=== PATIENT | male | born 1965 | race Hispanic/Latino ===

== ENCOUNTER 2018-08-09 12:06 | Emergency (ER) | payer BC ==
[2018-08-09 12:43] LABS: Absolute Lymphocytes (CBC) 3.5 K/uL (0.7-4.9); Absolute Monocytes 0.5 K/uL (0.1-1.3); Absolute Neutrophil 3.2 K/uL (1.8-8.0); Basophils % 0.4 % (0-1.3); Eosinophils % 1.5 % (0-4.4); Hematocrit 48.7 % (39.6-49.0); Lymphocytes % 47.2 % (15.3-44.8); MPV 7.5 fL (7.6-11.3); RBC Red Blood Cell Count 5.02 M/uL (4.33-5.43)
[2018-08-09 12:46] LABS: Protime INR 1.03
--- NOTE | 2018-08-09 12:47 | RAD REPORT ---
EXAM DESCRIPTION: Josiah Single View08/09/2018 12:37 pm CLINICAL HISTORY: Chest pain COMPARISON: none FINDINGS: The lungs appear clear of acute infiltrate. The heart is normal size IMPRESSION: No acute abnormalities displayed
[2018-08-09 13:03] LABS: ALT/SGPT 101 U/L (12-78); AST/SGOT 58 U/L (15-37); Alkaline Phosphatase 106 U/L (45-117); BUN Blood Urea Nitrogen 13 mg/dL (7-18); Bicarbonate 23 mmol/L (21-32); Bilirubin Direct 0.1 mg/dL (0-0.2); Bilirubin Total 0.4 mg/dL (0.2-1.0); Glucose Level 170 mg/dL (74-106); NT PRO-BNP 19 pg/mL (<125); Sodium Level 137 mmol/L (136-145); Troponin (Emerg Dept Use Only) < 0.02 ng/mL (0.0-0.045)
[2018-08-09 13:11] LABS: Blood Morphology Comment NOT SEEN (NOT SEEN); Platelet Estimate ADEQ
--- NOTE | 2018-08-09 13:19 | EDPHYS ---
Physician Documentation [facility] Name: Travis Pichardo Age: 52 yrs Sex: Male : 1965 Arrival Date: 08/09/2018 Time: 12:08 Bed 7 Private MD: Fan Alanis S ED Physician Joe Arteaga HPI: 08/09 12:17 This 52 yrs old Male presents to ER via Ambulatory with complaints of Chest pm1 Pain. 12:17 The patient or guardian reports chest pain that is located primarily in the anterior pm1 aspect of right upper chest. 12:17 Onset: yesterday. The pain does not radiate. The chest pain is described as sharp. pm1 Modifying factors: The symptoms are alleviated by rest, the symptoms are aggravated by cough, deep breath, palpation of area, moving right arm. Severity of pain: in the emergency department the pain has improved. The patient has been recently seen by a physician: the patient's primary care provider, earlier today. Patient with chest pain onset yesterday that is reproduced with coughing, deep breathing, and moving right arm. Patient was throwing the baseball around on Tuesday with grandchild and attributes his pain to it. No shortness of breath, diaphoresis, headache, nausea, vomiting. Historical: - Allergies: 12:25 No Known Allergies; ph - Home Meds: 12:25 ATRIPLA 600-200-300 mg oral tab 1 tab once daily [Active]; Januvia 100 mg oral tab 1 ph tab once daily [Active]; Jardiance 10 mg oral tab 1 tab once daily [Active]; lisinopril 5 mg Oral tab 1 tab once daily [Active]; simvastatin 20 mg Oral tab 1 tab once daily [Active]; - PMHx: 12:25 Hypertension; Hyperlipidemia; HIV; Diabetes - NIDDM; ph - Immunization history:: Adult Immunizations up to date. - Social history:: Smoking status: Patient/guardian denies using tobacco. - Ebola Screening: : No symptoms or risks identified at this time. ROS: 12:17 Constitutional: Negative for fever, chills, and weight loss, Eyes: Negative for injury, pm1 pain, redness, and discharge, ENT: Negative for injury, pain, and discharge, Neck: Negative for injury, pain, and swelling, Respiratory: Negative for shortness of breath, cough, wheezing, and pleuritic chest pain, Abdomen/GI: Negative for abdominal pain, nausea, vomiting, diarrhea, and constipation, Back: Negative for injury and pain. 12:17 : Negative for injury, bleeding, discharge, and swelling, MS/Extremity: Negative for injury and deformity, Skin: Negative for injury, rash, and discoloration, Neuro: Negative for headache, weakness, numbness, tingling, and seizure. 12:17 Cardiovascular: Positive for chest pain, with cough, of the anterior aspect of right upper chest, Negative for edema, orthopnea, palpitations. Exam: 12:17 Constitutional: This is a well developed, well nourished patient who is awake, alert, pm1 and in no acute distress. Head/Face: Normocephalic, atraumatic. Eyes: Pupils equal round and reactive to light, extra-ocular motions intact. Lids and lashes normal. Conjunctiva and sclera are non-icteric and not injected. Cornea within normal limits. Periorbital areas with no swelling, redness, or edema. ENT: Nares patent. No nasal discharge, no septal abnormalities noted. Tympanic membranes are normal and external auditory canals are clear. Oropharynx with no redness, swelling, or masses, exudates, or evidence of obstruction, uvula midline. Mucous membranes moist. Neck: Trachea midline, no thyromegaly or masses palpated, and no cervical lymphadenopathy. Supple, full range of motion without nuchal rigidity, or vertebral point tenderness. No Meningismus. Cardiovascular: Regular rate and rhythm with a normal S1 and S2. No gallops, murmurs, or rubs. Normal PMI, no JVD. No pulse deficits. Respiratory: Lungs have equal breath sounds bilaterally, clear to auscultation and percussion. No rales, rhonchi or wheezes noted. No increased work of breathing, no retractions or nasal flaring. Abdomen/GI: Soft, non-tender, with normal bowel sounds. No distension or tympany. No guarding or rebound. No evidence of tenderness throughout. Back: No spinal tenderness. No costovertebral tenderness. Full range of motion. 12:17 Skin: Warm, dry with normal turgor. Normal color with no rashes, no lesions, and no evidence of cellulitis. MS/ Extremity: Pulses equal, no cyanosis. Neurovascular intact. Full, normal range of motion. 12:17 Chest/axilla: Inspection: normal, Palpation: crepitus, is not appreciated, tenderness, that is mild, of the anterior aspect of right upper chest, that totally reproduces the patient's complaints. 12:17 Neuro: Orientation: is normal, Motor: is normal, moves all fours. 12:36 NSR, 70 BPM, Normal ECG pm1 Vital Signs: 12:21 BP 130 / 95; Pulse 94; Resp 18; Temp 97.6; Pulse Ox 97% on R/A; Weight 90.72 kg; Height ph 5 ft. 10 in. (177.80 cm); Pain 3/10; 13:05 BP 127 / 83; Pulse 79; Resp 18; Pulse Ox 95% ; sv 12:21 Body Mass Index 28.70 (90.72 kg, 177.80 cm) ph MDM: 12:11 Patient medically screened. pm1 13:17 Data reviewed: vital signs. Data interpreted: Pulse oximetry: on room air is 97 %. pm1 Interpretation: normal. Counseling: I had a detailed discussion with the patient and/or guardian regarding: the historical points, exam findings, and any diagnostic results supporting the discharge/admit diagnosis, lab results, radiology results, the need for outpatient follow up, to return to the emergency department if symptoms worsen or persist or if there are any questions or concerns that arise at home. 08/09 12:16 Order name: Basic Metabolic Panel; Complete Time: 13:17 pm08/09 12:16 Order name: CBC with Diff; Complete Time: 13:17 pm08/09 12:16 Order name: LFT's; Complete Time: 13:17 pm08/09 12:16 Order name: Magnesium; Complete Time: 13:17 pm08/09 12:16 Order name: NT PRO-BNP; Complete Time: 13:17 pm08/09 12:16 Order name: PT-INR; Complete Time: 12:52 pm08/09 12:16 Order name: Troponin (emerg Dept Use Only); Complete Time: 13:17 pm08/09 12:16 Order name: XRAY Chest (1 view); Complete Time: 12:48 pm08/09 12:16 Order name: EKG; Complete Time: 12:17 pm1 08/09 12:16 Order name: Cardiac monitoring; Complete Time: 12:33 pm1 08/09 12:16 Order name: EKG - Nurse/Tech; Complete Time: 12:34 pm1 08/09 12:16 Order name: Labs collected and sent; Complete Time: 12:33 pm1 08/09 12:51 Order name: Manual Differential; Complete Time: 13:17 EDMS 08/09 12:16 Order name: O2 Per Protocol; Complete Time: 13:24 pm1 08/09 12:16 Order name: O2 Sat Monitoring; Complete Time: 13:24 pm1 Administered Medications: No medications were administered Disposition: 15:23 Co-signature as Attending Physician, Joe Arteaga MD I agree with the assessment and yanci plan of care. Disposition: 08/09/18 13:18 Discharged to Home. Impression: Chest pain, unspecified. - Condition is Stable. - Discharge Instructions: Nonspecific Chest Pain. - Medication Reconciliation Form, Thank You Letter, Antibiotic Education, Prescription Opioid Use form. - Follow up: Emergency Department; When: As needed; Reason: Worsening of condition. Follow up: Private Physician; When: 2 - 3 days; Reason: Recheck today's complaints, Continuance of care, Re-evaluation by your physician. - Problem is new. - Symptoms have improved. Signatures: Dispatcher [employer] Joe Palomo MD MD cha Hall, Patricia RN RN Rigoberto Vera, WALL ATTENDANT WALL ATTENDANT pm1 Corrections: (The following items were deleted from the chart) 13:34 13:18 08/09/2018 13:18 Discharged to Home. Impression: Chest pain, unspecified. ph Condition is Stable. Forms are Medication Reconciliation Form, Thank You Letter, Antibiotic Education, Prescription Opioid Use. Follow up: Emergency Department; When: As needed; Reason: Worsening of condition. Follow up: Private Physician; When: 2 - 3 days; Reason: Recheck today's complaints, Continuance of care, Re-evaluation by your physician. Problem is new. Symptoms have improved. pm1
--- NOTE | 2018-08-09 13:19 | ER ---
Nurse's Notes [facility] Name: Travis Pichardo Age: 52 yrs Sex: Male : 1965 Arrival Date: 08/09/2018 Time: 12:08 Bed 7 Private MD: Fan Alanis S Diagnosis: Chest pain, unspecified Presentation: 08/09 12:19 Presenting complaint: Patient states: R sided chest pain since yesterday, worse w/ ph coughing, deep breathing, or movement, pt states, " I was playing catch w/ my grandson over the weekend and I think it's from that but my PCP wanted me to come get checked out." Denies SOB, nausea, or palpations, EKG done at PCP normal. Transition of care: patient was received from another setting of care (ambulatory primary care physician practice). Onset of symptoms was August 09, 2018. Risk Assessment: Do you want to hurt yourself or someone else? Patient reports no desire to harm self or others. Initial Sepsis Screen: Does the patient meet any 2 criteria? No. Patient's initial sepsis screen is negative. Does the patient have a suspected source of infection? No. Patient's initial sepsis screen is negative. Care prior to arrival: None. 12:19 Method Of Arrival: Ambulatory ph 12:19 Acuity: LIYAH 3 ph Historical: - Allergies: 12:25 No Known Allergies; ph - Home Meds: 12:25 ATRIPLA 600-200-300 mg oral tab 1 tab once daily [Active]; Januvia 100 mg oral tab 1 ph tab once daily [Active]; Jardiance 10 mg oral tab 1 tab once daily [Active]; lisinopril 5 mg Oral tab 1 tab once daily [Active]; simvastatin 20 mg Oral tab 1 tab once daily [Active]; - PMHx: 12:25 Hypertension; Hyperlipidemia; HIV; Diabetes - NIDDM; ph - Immunization history:: Adult Immunizations up to date. - Social history:: Smoking status: Patient/guardian denies using tobacco. - Ebola Screening: : No symptoms or risks identified at this time. Screenin:26 Abuse screen: Denies threats or abuse. Denies injuries from another. Nutritional ph screening: No deficits noted. Tuberculosis screening: No symptoms or risk factors identified. Fall Risk None identified. Assessment: 12:27 General: Appears in no apparent distress. comfortable, well groomed, Behavior is calm, ph cooperative, appropriate for age, Denies fever, feeling ill. Pain: Complains of pain in anterior aspect of right upper chest Pain does not radiate. Pain currently is 3 out of 10 on a pain scale. Quality of pain is described as sharp, Pain began 1 day ago. Aggravated by repositioning. Neuro: Level of Consciousness is awake, alert, obeys commands, Oriented to person, place, time, situation. Cardiovascular: Reports chest pain, Denies diaphoresis, lightheadedness, nausea, palpitations, shortness of breath, Capillary refill < 3 seconds in bilateral fingers Patient's skin is warm and dry. Rhythm is sinus rhythm Chest pain quality is sharp, is located in right anterior chest wall is aggravated by breathing. Respiratory: Airway is patent Respiratory effort is even, unlabored, Respiratory pattern is regular, symmetrical, Breath sounds are clear bilaterally. GI: Patient currently denies abdominal pain, nausea, vomiting. Derm: Skin is intact, is healthy with good turgor, Skin is pink, warm \\T\\ dry. Musculoskeletal: Circulation, motion, and sensation intact. Range of motion: intact in all extremities. 13:33 Reassessment: Patient appears in no apparent distress at this time. Patient and/or ph family updated on plan of care and expected duration. Pain level reassessed. Patient is alert, oriented x 3, equal unlabored respirations, skin warm/dry/pink. Pt d/c home. Vital Signs: 12:21 BP 130 / 95; Pulse 94; Resp 18; Temp 97.6; Pulse Ox 97% on R/A; Weight 90.72 kg; Height ph 5 ft. 10 in. (177.80 cm); Pain 3/10; 13:05 BP 127 / 83; Pulse 79; Resp 18; Pulse Ox 95% ; sv 12:21 Body Mass Index 28.70 (90.72 kg, 177.80 cm) ph ED Course: 12:08 Patient arrived in ED. mr 12:09 Fan Alanis MD is Private Physician. mr 12:10 Daina Vila, PABLO is Primary Nurse. ph 12:11 Rigoberto Echevarria NP is PHCP. pm1 12:11 Joe Arteaga MD is Attending Physician. pm1 12:21 Triage completed. ph 12:26 Arm band placed on Patient placed in an exam room, on a stretcher, on telemetry monitor, ph on pulse oximetry. 12:27 Patient has correct armband on for positive identification. Bed in low position. Call ph light in reach. Side rails up X 1. environmental monitoring technician on. Pulse ox on. NIBP on. Door closed. Noise minimized. 12:31 Initial lab(s) drawn, by ED staff, sent to lab. Patient maintains SpO2 saturation ph greater than 95% on room air. 12:31 X-ray(s) taken. sv 12:35 X-ray completed. Portable x-ray completed in exam room. Patient tolerated procedure sw well. 12:36 XRAY Chest (1 view) In Process Unspecified. EDMS 13:33 No provider procedures requiring assistance completed. Patient did not have IV access ph during this emergency room visit. Administered Medications: No medications were administered Outcome: 13:18 Discharge ordered by MD. pm1 13:34 Discharged to home ambulatory. ph 13:34 Condition: good 13:34 Discharge instructions given to patient, Instructed on discharge instructions, follow up and referral plans. Demonstrated understanding of instructions, follow-up care. 13:34 Patient left the ED. ph Signatures: Dispatcher [employer] EDManjula Mckinney RN RN sv Rivera, Daina Collazo RN RN ph Warren, Shannon sw Marinas, Patrick, MELISSA LARD REFINER pm1
--- NOTE | 2018-08-09 15:29 | EKG ---
Test Date: 2018-08-09 Test Time: 12:28:53 Assistant Paralegal: MARIA M MEASUREMENT RESULTS: Intervals: Rate: 70 NJ: 152 QRSD: 86 QT: 380 QTc: 410 [place]foot: P: 64 NJ: 152 QRS: 85 T: 49 INTERPRETIVE STATEMENTS: Normal sinus rhythm Normal ECG Compared to ECG 10/27/2005 13:59:11 No significant changes Electronically Signed On 08-09-18 15:28:02 CDT by Med [facility]
== END 2018-08-09 13:34 | disposition home or self-care (01) ==
LOC: ER 12:06
DX: R07.9 Chest pain, unspecified (principal); I10 Essential (primary) hypertension; E78.5 Hyperlipidemia, unspecified; E11.9 Type 2 diabetes mellitus without complications; Z21 Asymptomatic human immunodeficiency virus [HIV] infection status
CPT/HCPCS: 36415; 71045; 80048; 80076; 83735; 83880; 84484; 85025; 85610; 93005; 99284

== ENCOUNTER 2022-04-10 09:20 | Emergency (ER) | payer BC ==
--- OUTSIDE RECORDS SUMMARY | 2022-04-10 09:27 | XMS REPORT | Continuity of Care Document ---
:1965 Author Organization [facility] t Address [address] [place] [address] Care Team Providers Name Role Phone Fan Peraza MD Primary Care Physician Brittany Willis MD Attending Clinician Fan Peraza MD Attending Clinician Malinda Matthews MA Attending Clinician Unavailable Only, Ang Db Test Attending Clinician Unavailable Charity Zuleta MD Attending Clinician CHARITY ZULETA Attending Clinician Unavailable Chidi Diallo RN Attending Clinician Unavailable Therapy, [facility] Covid Infusion Attending Clinician Unavailable Caesar Epstein MD Attending Clinician ACESAR EPSTEIN Attending Clinician Unavailable Shannon Jesus RN Attending Clinician Unavailable Doctor Unassigned, [place] Attending Clinician Unavailable TASNEEM ZHOU Attending Clinician Unavailable Ebrahikimberly SULLIVANPTasneem Attending Clinician UNKNOWN, ATTENDING Attending Clinician Unavailable Team, [facility] Attending Clinician Unavailabl e Lab, Ang - Db Attending Clinician Unavailable FAN PERAZA Attending Clinician Unavailable Jackie Gao RN Attending Clinician Unavailable NATTY THOMAS III Attending Clinician Unavailable Lab, [facility] Fam Pob I Attending Clinician Unavailable Shelley Hernandez Attending Clinician SHELLEY DE LA ROSA Attending Clinician Unavailable Marck Tilley DO Attending Clinician Kayleen Pratt Attending Clinician KAYLEEN TRAVIS Attending Clinician Unavailable Hilda Ritter Attending Clinician HILDA STEARNS Attending Clinician Unavailable Provider, [facility] Attending Clinician Unavailable Yady Turcios Attending Clinician Trish SHAH, Danay Benjamin Attending Clinician Unavailable YADY CHANG Attending Clinician Unavailable Pob1, Acute Care [facility] Attending Clinician Unavailable 2, [facility] Lab Attending Clinician Unavailable Payers Payer Name Policy Type Policy Number Effective Date Expiration Date S ource Problems Condition Condition Condition Status Onset Resolution Last Treating Co mments Source Name Details Category Date Date Treatment Clinician Date Fatty Fatty Disease Active Univers liver liver 12-13 ity of 00:00: [address] DONNELL DONNELL Disease Active Methodi (obstructi (obstructi 12-13 st ve sleep ve sleep 00:00: Hospit a apnea) apnea) 00 l Elevated Elevated Disease Active Unive rs total total 1-15 ity of protein protein 00:00: [address] Cervical Cervical Disease Active [facility] di pain pain 2-09 st (neck) (neck) 00:00: Hospita 00 l Type 2 Type 2 Disease Active 2016-04 Univers diabetes diabetes 0-17 ity of mellitus mellitus 00:00: [place] with with 00 Medical microalbum microalbum Br anch inuria, inuria, without without long-term long-term current current use of use of insulin insulin Hyperlipid Hyperlipid Disease Active 2016-04 M ethodi emia emia 0-17 st 00:00: Hospita 00 l Fatty Fatty Disease Active [facility] liver liver 808 st 00:00: Hospita 00 l Type 2 Type 2 Disease Active [facility] diabetes diabetes 4-21 st mellitus mellitus 00:00: Hospit a 00 l HIV (human HIV (human Disease Active U nivers immunodefi immunodefi 4-12 it y of ciency ciency 00:00: [place] virus virus 00 Medical infection) infection) Br anch Elevated Elevated Disease Active [facility] di liver liver 4-12 st enzymes enzymes 00:00: Hospita 00 l 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 09-22 ciency ciency 00:00: Hospita virus virus 00 l (HIV) (HIV) disease disease Abnormal Abnormal Disease Active [facility] di LFTs LFTs 09-22 00:00: Hospita 00 l Dyslipidem Dyslipidem Disease Active M ethodi ia ia 09-22 00:00: Hospita 00 l Essential Essential Disease Active 2014-04 Met hodi hypertensi hypertensi on on 00:00: Hospita 00 l Allergies, Adverse Reactions, Alerts Allergy Allergy Status Severity Reaction(s) Onset Inactive Treating Comm ents Source Name Type Date Date Clinician No Known Propensi Active Method i Drug ty to 09-22 Allergie adverse 00:00: Hospita s reaction 00 l s to drug NO KNOWN Drug Active [facility] ALLERGIE Class ity of S [facility] Family History Family Member Diagnosis Comments Start Date Stop Date Source Natural brother Diabetes [facility] Natural father Diabetes [facility] Natural father Heart attack [facility] Social History Social Habit Start Date Stop Date Quantity Comments Source History SDOH University o f Alcohol Frequency [place] [facility] History SDOH University o f Alcohol Std [place] Medical Drinks Branch History SDDC University o f Alcohol Binge [place] Medic al Branch Alcohol intake 2022-01-19 2022-01-19 Current Protestant 00:00:00 00:00:00 non-drinker of Hospital alcohol (finding) Exposure to 2021-10-02 2021-10-12 Not sure [facility] SARS-CoV-2 00:00:00 10:50:00 [facility] (event) Branch Tobacco use and 2017-05-27 2017-05-27 Smokeless tobacco [facility] exposure 00:00:00 00:00:00 non-user Hospital Alcohol Comment 2015-03-26 2015-03-26 socially Universit y of 00:00:00 00:00:00 [facility] Sex [birth year] At [birth year] [facility] 00:00:00 00:00:00 Hospital Smoking Status Start Date Stop Date Source Never smoked tobacco [facility] Medications Ordered Filled Start Stop Current Ordering Indication Dosage Frequency Signature Comments Components Source Medication Medication Date Date Medication? Clinician (SIG) Name Name efavirenz-e 2021-043- Yes TAKE 1 Met hodi mtricitabin 1-11 11-[address] e-tenofovir 00:00: 05:59 MOUTH Hosp filipe DF 00 :00 EVERY DAY l (ATRIPLA) IN THE 600-200-300 EVENING mg per tablet JANUVIA 100 2021-0 Yes [id number] TAKE 1 Univers mg tablet 9-23 TABLET BY ity o f 00:00: MOUTH [place] 00 EVERY DAY Medical Branch JARDIANCE 2021-0 Yes [id number] TAKE 1 Un radha 25 mg Tab 8-26 TABLET BY ity o f 00:00: MOUTH [place] 00 EVERY DAY Medical Branch JARDIANCE 0 Yes [id number] TAKE 1 Un radha 25 mg Tab 8-26 TABLET BY ity o f 00:00: MOUTH [place] 00 EVERY DAY Medical Branch LISINOPRIL 2021-0 Yes [id number] TAKE 1 U nivers 5 mg tablet 8-08 TABLET BY ity of 00:00: MOUTH [place] 00 EVERY DAY Medical Branch SIMVASTATIN 2021-0 Yes [id number] TAKE 1 Univers 20 mg 8-08 TABLET BY ity of tablet 00:00: MOUTH [place] 00 EVERY DAY Medical AT NIGHT Branch LISINOPRIL 0 Yes [id number] TAKE 1 U nivers 5 mg tablet 8-08 TABLET BY ity of 00:00: MOUTH [place] 00 EVERY DAY Medical Branch SIMVASTATIN 2021-0 Yes [id number] TAKE 1 Univers 20 mg 8-08 TABLET BY ity of tablet 00:00: MOUTH [place] 00 EVERY DAY Medical AT NIGHT Branch LISINOPRIL 2021-0 Yes [id number] TAKE 1 U nivers 5 mg tablet 8-08 TABLET BY ity of 00:00: MOUTH [place] 00 EVERY DAY Medical Branch SIMVASTATIN 2021-0 Yes [id number] TAKE 1 Univers 20 mg 8-08 TABLET BY ity of tablet 00:00: MOUTH [place] 00 EVERY DAY Medical AT NIGHT Branch Jardiance 2021-0 Yes 25mg QD Take 25 mg Me thodi 25 mg 5-[address] tablet 00:00: daily. Hospita 00 l amoxicillin 0 Yes 500mg Q.[id number] Take 500 [facility] (AMOXIL) 4-[id number] 500 MG 00:00: 3D mouth 3 Hospita capsule 00 (three) l times a day. empaglifloz 2022-0 Yes [id number] 25mg Take 1 Univers in 2-07 tablet by ity of (JARDIANCE) 00:00: mouth [place] 25 mg Tab 00 daily. Medical Branch empaglifloz 2-0 Yes [id number] 25mg Take 1 Univers in 2-07 tablet by ity of (JARDIANCE) 00:00: mouth [place] 25 mg Tab 00 daily. Medical Branch empaglifloz 2-0 Yes [id number] 25mg Take 1 Univers in 2-07 tablet by ity of (JARDIANCE) 00:00: mouth [place] 25 mg Tab 00 daily. Medical Branch empaglifloz 2-0 Yes [id number] 25mg Take 1 Univers in 2-07 tablet by ity of (JARDIANCE) 00:00: mouth [place] 25 mg Tab 00 daily. Medical Branch empaglifloz 2-0 Yes [id number] 25mg Take 1 Univers in 2-07 tablet by ity of (JARDIANCE) 00:00: mouth [place] 25 mg Tab 00 daily. Medical Branch empaglifloz 2-0 Yes [id number] 25mg Take 1 Univers in 2-07 tablet by ity of (JARDIANCE) 00:00: mouth [place] 25 mg Tab 00 daily. Medical Branch empaglifloz 2-0 Yes [id number] 25mg Take 1 Univers in 2-07 tablet by ity of (JARDIANCE) 00:00: mouth [place] 25 mg Tab 00 daily. Medical Branch empaglifloz 2-0 Yes [id number] 25mg Take 1 Univers in 2-07 tablet by ity of (JARDIANCE) 00:00: mouth [place] 25 mg Tab 00 daily. Medical Branch empaglifloz 2-0 Yes [id number] 25mg Take 1 Univers in 2-07 tablet by ity of (JARDIANCE) 00:00: mouth [place] 25 mg Tab 00 daily. Medical Branch empaglifloz 2-0 Yes [id number] 25mg Take 1 Univers in 2-07 tablet by ity of (JARDIANCE) 00:00: mouth [place] 25 mg Tab 00 daily. Medical Branch efavirenz-e 2021-0 2022- No TAKE 1 Met hodi mtricitabin 2-10 26- TABLET BY st e-tenofovir 00:00: 00:00 MOUTH Hosp filipe DF 00 :00 EVERY DAY l (ATRIPLA) IN THE 600-200-300 EVENING mg per tablet empaglifloz 2021-2021- No [id number] 25mg Take 1 Univers in 2-07 08-26 tablet by ity of (JARDIANCE) 00:00: 00:00 [place] 25 mg Tab 00 :00 daily. Medical Branch simvastatin 2021-0 Yes [id number] TAKE 1 Univers 20 mg 1-12 TABLET BY ity of tablet 00:00: MOUTH [place] 00 EVERY DAY Medical AT NIGHT Branch lisinopriL 0 Yes [id number] 5mg Take 1 U nivers 5 mg tablet 1-12 tablet by ity of 00:00: mouth [place] 00 daily. Medical Branch SITagliptin Yes [id number] 100mg Take 1 Univers (JANUVIA) 1-12 tablet by ity o f 100 mg 00:00: mouth [place] tablet 00 daily. Medical Branch simvastatin 2021-0 Yes [id number] TAKE 1 Univers 20 mg 1-12 TABLET BY ity of tablet 00:00: MOUTH [place] 00 EVERY DAY Medical AT NIGHT Branch lisinopriL 0 Yes [id number] 5mg Take 1 U nivers 5 mg tablet 1-12 tablet by ity of 00:00: mouth [place] 00 daily. Medical Branch SITagliptin Yes [id number] 100mg Take 1 Univers (JANUVIA) 1-12 tablet by ity o f 100 mg 00:00: mouth [place] tablet 00 daily. Medical Branch simvastatin 2021-0 Yes [id number] TAKE 1 Univers 20 mg 1-12 TABLET BY ity of tablet 00:00: MOUTH [place] 00 EVERY DAY Medical AT NIGHT Branch lisinopriL 0 Yes [id number] 5mg Take 1 U nivers 5 mg tablet 1-12 tablet by ity of 00:00: mouth [place] 00 daily. Medical Branch SITagliptin Yes [id number] 100mg Take 1 Univers (JANUVIA) 1-12 tablet by ity o f 100 mg 00:00: mouth [place] tablet 00 daily. Medical Branch simvastatin 2021-0 Yes [id number] TAKE 1 Univers 20 mg 1-12 TABLET BY ity of tablet 00:00: MOUTH [place] 00 EVERY DAY Medical AT NIGHT Branch lisinopriL 0 Yes [id number] 5mg Take 1 U nivers 5 mg tablet 1-12 tablet by ity of 00:00: mouth [place] 00 daily. Medical Branch SITagliptin 0 Yes [id number] 100mg Take 1 Univers (JANUVIA) 1-12 tablet by ity o f 100 mg 00:00: mouth [place] tablet 00 daily. Medical Branch simvastatin 2021-0 Yes [id number] TAKE 1 Univers 20 mg 1-12 TABLET BY ity of tablet 00:00: MOUTH [place] 00 EVERY DAY Medical AT NIGHT Branch lisinopriL 2021-0 Yes [id number] 5mg Take 1 U nivers 5 mg tablet 1-12 tablet by ity of 00:00: mouth [place] 00 daily. Medical Branch SITagliptin 0 Yes [id number] 100mg Take 1 Univers (JANUVIA) 1-12 tablet by ity o f 100 mg 00:00: mouth [place] tablet 00 daily. Medical Branch simvastatin 2021-0 Yes [id number] TAKE 1 Univers 20 mg 1-12 TABLET BY ity of tablet 00:00: MOUTH [place] 00 EVERY DAY Medical AT NIGHT Branch lisinopriL 0 Yes [id number] 5mg Take 1 U nivers 5 mg tablet 1-12 tablet by ity of 00:00: mouth [place] 00 daily. Medical Branch SITagliptin 0 Yes [id number] 100mg Take 1 Univers (JANUVIA) 1-12 tablet by ity o f 100 mg 00:00: mouth [place] tablet 00 daily. Medical Branch simvastatin 2021-0 Yes [id number] TAKE 1 Univers 20 mg 1-12 TABLET BY ity of tablet 00:00: MOUTH [place] 00 EVERY DAY Medical AT NIGHT Branch lisinopriL 2021-0 Yes [id number] 5mg Take 1 U nivers 5 mg tablet 1-12 tablet by ity of 00:00: mouth [place] 00 daily. Medical Branch SITagliptin 0 Yes [id number] 100mg Take 1 Univers (JANUVIA) 1-12 tablet by ity o f 100 mg 00:00: mouth [place] tablet 00 daily. Medical Branch simvastatin 2021-0 Yes [id number] TAKE 1 Univers 20 mg 1-12 TABLET BY ity of tablet 00:00: MOUTH [place] 00 EVERY DAY Medical AT NIGHT Branch lisinopriL 2021-0 Yes [id number] 5mg Take 1 U nivers 5 mg tablet 1-12 tablet by ity of 00:00: mouth [place] 00 daily. Medical Branch SITagliptin Yes [id number] 100mg Take 1 Univers (JANUVIA) 1-12 tablet by ity o f 100 mg 00:00: mouth [place] tablet 00 daily. Medical Branch simvastatin Yes [id number] TAKE 1 Univers 20 mg 1-12 TABLET BY ity of tablet 00:00: MOUTH [place] 00 EVERY DAY Medical AT NIGHT Branch lisinopriL Yes [id number] 5mg Take 1 U nivers 5 mg tablet 1-12 tablet by ity of 00:00: mouth [place] 00 daily. Medical Branch SITagliptin Yes [id number] 100mg Take 1 Univers (JANUVIA) 1-12 tablet by ity o f 100 mg 00:00: mouth [place] tablet 00 daily. Medical Branch SITagliptin Yes [id number] 100mg Take 1 Univers (JANUVIA) 1-12 tablet by ity o f 100 mg 00:00: mouth [place] tablet 00 daily. Medical Branch SITagliptin Yes [id number] 100mg Take 1 Univers (JANUVIA) 1-12 tablet by ity o f 100 mg 00:00: mouth [place] tablet 00 daily. Medical Branch SITagliptin 2021- No [id number] 100mg Take 1 Univers (JANUVIA) 1-12 - tablet by ity of 100 mg 00:00: 00:00 mouth [place] tablet 00 :00 daily. Medical Branch simvastatin 2021- No [id number] TAKE 1 Univers 20 mg 04-29-08 TABLET BY ity of tablet 00:00: 00:00 MOUTH [place] 00 :00 EVERY DAY Medical AT NIGHT Branch lisinopriL 2021- No [id number] 5mg Take 1 Univers 5 mg tablet 04-29- tablet by it y of 00:00: 00:00 mouth [place] 00 :00 daily. Medical Branch efavirenz-e 2021- No TAKE 1 Met hodi mtricitabin 5-10 05-[address] e-tenofovir 00:00: 00:00 MOUTH Hosp filipe DF 00 :00 EVERY DAY l (ATRIPLA) IN THE 600-200-300 EVENING mg per tablet naproxen 2019-04- No [id number] 500mg Take 1 Un radha 500 mg - 05-25 tablet by ity of tablet 00:00: 00:00 mouth 2 [place] 00 :00 (two) Medical times Branch daily with meals. methylPREDN 2021- No [id number] Take by [facility] 12-24 mouth ity of (MEDROL, 00:00: 00:00 [place] 4 mg 00 :00 CTIONS. Medica l tablets follow Branch package directions triamcinolo 2021- No [id number] 2{spray Use 2 [facility] ne 12-24 } Sprays in ity of (NASACORT) 00:00: 00:00 each [place] 55 mcg 00 :00 nostril Medical nasal daily. Branch inhaler lisinopriL Yes 5mg Take 5 mg Me thodi (PRINIVIL) 3-[address] 5 mg tablet 00:00: Hospit a 00 l empaglifloz 2021- No 1{tbl} Take 1 M ethodi in 10 mg -05 05-[address] tablet 00:00: 00:00 mouth. Hospita tablet 00 :00 l simvastatin 2021- No TAKE 1 Met hodi (ZOCOR) 20 3-18 -[address] mg tablet 00:00: 00:00 MOUTH Hospit a 00 :00 EVERY l NIGHT SITagliptin 2021- No 100mg Take 100 Methodi (JANUVIA) 3-18 01-[address] 100 MG 00:00: 00:00 mouth. Hospita tablet 00 :00 l empaglifloz Yes Take by Met hodi in 10 mg 2-[address] tablet 00:00: Hospita tablet 00 l simvastatin Yes TAKE 1 Meth julissa (ZOCOR) 20 1-[address] MG tablet 00:00: MOUTH Hospita 00 EVERY DAY. l FOLLOW UP WITH LIVER SPECIALIST REGARDING CONTINUATI ON OF MEDICINE lisinopril 2021- No 5mg QD Take 5 mg M ethodi (PRINIVIL,Z 04-[address] ESTRIL) 5 00:00: 00:00 daily. Hospi ta mg tablet 00 :00 l JANUVIA 100 2017-0 Yes 100mg QD Take 100 M ethodi mg tablet 4-[address] 00:00: mouth once Hospita 00 daily. l ATRIPLA 2014-04 Yes Univers 600-200-300 1-18 ity of mg per 00:00: [place] tablet Medical Branch ATRIPLA 2014-04 Yes Univers 600-200-300 1-18 ity of mg per 00:00: [place] tablet Medical Branch ATRIPLA 2014-04 Yes Univers 600-200-300 1-18 ity of mg per 00:00: [place] tablet Medical Branch ATRIPLA 2014- Yes Univers 600-200-300 1-18 ity of mg per 00:00: [place] tablet Medical Branch ATRIPLA 2014-04 Yes Univers 600-200-300 1-18 ity of mg per 00:00: [place] tablet Medical Branch ATRIPLA 2014-04 Yes Univers 600-200-300 1-18 ity of mg per 00:00: [place] tablet Medical Branch ATRIPLA 2014-04 Yes Univers 600-200-300 1-18 ity of mg per 00:00: [place] tablet Medical Branch ATRIPLA 2014-04 Yes Univers 600-200-300 1-18 ity of mg per 00:00: [place] tablet Medical Branch ATRIPLA 2014-04 Yes Univers 600-200-300 1-18 ity of mg per 00:00: [place] tablet Medical Branch ATRIPLA 2014-04 Yes Univers 600-200-300 1-18 ity of mg per 00:00: [place] tablet Medical Branch ATRIPLA 2014-04 Yes Univers 600-200-300 1-18 ity of mg per 00:00: [place] tablet Medical Branch ATRIPLA 2014-04 Yes Univers 600-200-300 1-18 ity of mg per 00:00: [place] tablet [facility] Branch Immunizations Ordered Immunization Filled Immunization Date Status Commen ts Source Name Name CRISTELX HARRIETT PF 2022-01-[address] 00:00:00 [facility] 2021-10[facility]08 Completed University o f 00:00:00 [facility] BEBTELOVIAZB 2021-10-08 Completed University o f 00:00:00 [facility] BEBTELOVIAZB 2021-10-08 Completed University o f 00:00:00 [facility] BEBTELOVIAZB 2021-10-08 Completed University o f 00:00:00 [facility] BEBTELOVIMAB 2021-10-08 Completed University o f 00:00:00 [facility] BEBTELOVIMAB 2021-10-08 Completed University o f 00:00:00 [facility] BEBTELOVIMAB 2021-10-08 Completed University o f 00:00:00 [facility] Bebtelovimab 2021-10-08 Completed [facility] 00:[facility]:00 [facility] Influenza High Dose 2021-05-05 Completed Unive rsity of Quad 00:00:00 [facility] Influenza High Dose 2021-05-05 Completed Unive rsity of Quad 00:00:00 [facility] Influenza High Dose 2021-05-05 Completed Unive rsity of Quad 00:00:00 [facility] Influenza High Dose 2021-05-05 Completed Unive rsity of Quad 00:00:00 [facility] Influenza High Dose 2021-05-05 Completed Unive rsity of Quad 00:00:00 [facility] Influenza High Dose 2021-05-05 Completed Unive rsity of Quad 00:00:00 [facility] Influenza High Dose 2021-05-05 Completed Unive rsity of Quad 00:00:00 [facility] Influenza High Dose 2021-05-05 Completed Unive rsity of Quad 00:00:00 [facility] Influenza High Dose 2021-05-05 Completed Unive rsity of Quad 00:00:00 [facility] Influenza High Dose 2021-05-05 Completed Unive rsity of Quad 00:00:00 [facility] Influenza High Dose 2021-05-05 Completed Unive rsity of Quad 00:00:00 [facility] Influenza High Dose 2021-05-05 Completed Unive rsity of Quad 00:00:00 [facility] FLUCELVAX QUAD PF 2021-05-[address] 00:00:00 Hospital Influenza High Dose 2020-02-12 Completed Unive rsity of Quad 00:00:00 [facility] Influenza High Dose 2020-02-12 Completed Unive rsity of Quad 00:00:00 [facility] Influenza High Dose 2020-02-12 Completed Unive rsity of Quad 00:00:00 [facility] Influenza High Dose 2020-02-12 Completed Unive rsity of Quad 00:00:00 [place] [facility] Influenza High Dose 2020-02-12 Completed Unive rsity of Quad 00:00:00 [facility] Influenza High Dose 2020-02-12 Completed Unive rsity of Quad 00:00:00 [facility] Influenza High Dose 2020-02-12 Completed Unive rsity of Quad 00:00:00 [facility] Influenza High Dose 2020-02-12 Completed Unive rsity of Quad 00:00:00 [facility] Influenza High Dose 2020-02-12 Completed Unive rsity of Quad 00:00:00 [facility] Influenza High Dose 2020-02-12 Completed Unive rsity of Quad 00:00:00 [facility] Influenza High Dose 2020-02-12 Completed Unive rsity of Quad 00:00:00 [facility] Influenza High Dose 2020-02-12 Completed Unive rsity of Quad 00:00:00 [facility] FLUCELVAX QUAD PF 2020-02-[address] 00:00:00 [facility] Influenza Virus 2020-01-24 Completed Universit y of Vaccine Quad IM 3+ 00:00:00 [facility] Influenza Virus 2020-01-24 Completed Universit y of Vaccine Quad IM 3+ 00:00:00 [facility] Influenza Virus 2020-01-24 Completed Universit y of Vaccine Quad IM 3+ 00:00:00 [facility] Influenza Virus 2020-01-24 Completed Universit y of Vaccine Quad IM 3+ 00:00:00 [facility] Influenza Virus 2020-01-24 Completed Universit y of Vaccine Quad IM 3+ 00:00:00 [facility] Influenza Virus 2020-01-24 Completed Universit y of Vaccine Quad IM 3+ 00:00:00 [facility] Influenza Virus 2020-01-24 Completed Universit y of Vaccine Quad IM 3+ 00:00:00 [facility] Influenza Virus 2020-01-24 Completed Universit y of Vaccine Quad IM 3+ 00:00:00 [facility] Influenza Virus 2020-01-24 Completed Universit y of Vaccine Quad IM 3+ 00:00:00 [facility] Influenza Virus 2020-01-24 Completed Universit y of Vaccine Quad IM 3+ 00:00:00 [facility] Influenza Virus 2020-01-24 Completed Universit y of Vaccine Quad IM 3+ 00:00:00 [facility] Influenza Virus 2020-01-24 Completed Universit y of Vaccine Quad IM 3+ 00:00:00 [facility] Branch Influenza Virus 2020-01-23 Completed Universit y of Vaccine Quad IM 00:00:00 [place] Med ical Multi-dose 6+ MO Branch Influenza Virus 2020-01-23 Completed Universit y of Vaccine Quad IM 00:00:00 [place] Med ical Multi-dose 6+ MO Branch Influenza Virus 2020-01-23 Completed Universit y of Vaccine Quad IM 00:00:00 [place] Med ical Multi-dose 6+ MO Branch Influenza Virus 2020-01-23 Completed Universit y of Vaccine Quad IM 00:00:00 [place] Med ical Multi-dose 6+ MO Branch Influenza Virus 2020-01-23 Completed Universit y of Vaccine Quad IM 00:00:00 [place] Med ical Multi-dose 6+ MO Branch Influenza Virus 2020-01-23 Completed Universit y of Vaccine Quad IM 00:00:00 [place] Med ical Multi-dose 6+ MO Branch Influenza Virus 2020-01-23 Completed Universit y of Vaccine Quad IM 00:00:00 [place] Med ical Multi-dose 6+ MO Branch Influenza Virus 2020-01-23 Completed Universit y of Vaccine Quad IM 00:00:00 [place] Med ical Multi-dose 6+ MO Branch Influenza Virus 2020-01-23 Completed Universit y of Vaccine Quad IM 00:00:00 [place] Med ical Multi-dose 6+ MO Branch Influenza Virus 2020-01-23 Completed Universit y of Vaccine Quad IM 00:00:00 [place] Med ical Multi-dose 6+ MO Branch Influenza Virus 2020-01-23 Completed Universit y of Vaccine Quad IM 00:00:00 [place] Med ical Multi-dose 6+ MO Branch Influenza Virus 2020-01-23 Completed Universit y of Vaccine Quad IM 00:00:00 [place] Med ical Multi-dose 6+ MO Branch Influenza Virus 2019-04-07 Completed Universit y of Vaccine Quad IM 00:00:00 [place] Med ical Multi-dose 6+ MO Branch Influenza Virus 2019-04-07 Completed Universit y of Vaccine Quad IM 00:00:00 [place] Med ical Multi-dose 6+ MO Branch Influenza Virus 2019-04-07 Completed Universit y of Vaccine Quad IM 00:00:00 [place] Med ical Multi-dose 6+ MO Branch Influenza Virus 2019-04-07 Completed Universit y of Vaccine Quad IM 00:00:00 [place] Med ical Multi-dose 6+ MO Branch Influenza Virus 2019-04-07 Completed Universit y of Vaccine Quad IM 00:00:00 [place] Med ical Multi-dose 6+ MO Branch Influenza Virus 2019-04-07 Completed Universit y of Vaccine Quad IM 00:00:00 [place] Med ical Multi-dose 6+ MO Branch Influenza Virus 2019-04-07 Completed Universit y of Vaccine Quad IM 00:00:00 [place] Med ical Multi-dose 6+ MO Branch Influenza Virus 2019-04-07 Completed Universit y of Vaccine Quad IM 00:00:00 [place] Med ical Multi-dose 6+ MO Branch Influenza Virus 2019-04-07 Completed Universit y of Vaccine Quad IM 00:00:00 [place] Med ical Multi-dose 6+ MO Branch Influenza Virus 2019-04-07 Completed Universit y of Vaccine Quad IM 00:00:00 [place] Med ical Multi-dose 6+ MO Branch Influenza Virus 2019-04-07 Completed Universit y of Vaccine Quad IM 00:00:00 [place] Med ical Multi-dose 6+ MO Branch Influenza Virus 2019-04-07 Completed Universit y of Vaccine Quad IM 00:00:00 [place] Med ical Multi-dose 6+ MO Branch FLUZONE QUAD 2019-04-07 Completed [facility] 00:00:00 [facility] Influenza Virus 2019-03-28 Completed Universit y of Vaccine Quad IM 00:00:00 [place] [facility] Multi-dose 6+ MO Branch Influenza Virus 2019-03-28 Completed Universit y of Vaccine Quad .5 mL IM 00:00:00 [facility] 6+ MO Branch Influenza Virus 2019-03-28 Completed Universit y of Vaccine Quad IM 00:00:00 [place] [facility] Multi-dose 6+ MO Branch Influenza Virus 2019-03-28 Completed Universit y of Vaccine Quad .5 mL IM 00:00:00 [facility] 6+ MO Branch Influenza Virus 2019-03-28 Completed Universit y of Vaccine Quad IM 00:00:00 [place] [facility] Multi-dose 6+ MO Branch Influenza Virus 2019-03-28 Completed Universit y of Vaccine Quad .5 mL IM 00:00:00 [facility] 6+ MO Branch Influenza Virus 2019-03-28 Completed Universit y of Vaccine Quad IM 00:00:00 [place] [facility] Multi-dose 6+ MO Branch Influenza Virus 2019-03-28 Completed Universit y of Vaccine Quad .5 mL IM 00:00:00 [facility] 6+ MO Branch Influenza Virus 2019-03-28 Completed Universit y of Vaccine Quad IM 00:00:00 [place] [facility] Multi-dose 6+ MO Branch Influenza Virus 2019-03-28 Completed Universit y of Vaccine Quad .5 mL IM 00:00:00 [facility] 6+ MO Branch Influenza Virus 2019-03-28 Completed Universit y of Vaccine Quad IM 00:00:00 [place] [facility] Multi-dose 6+ MO Branch Influenza Virus 2019-03-28 Completed Universit y of Vaccine Quad .5 mL IM 00:00:00 [facility] 6+ MO Branch Influenza Virus 2019-03-28 Completed Universit y of Vaccine Quad IM 00:00:00 [place] [facility] Multi-dose 6+ MO Branch Influenza Virus 2019-03-28 Completed Universit y of Vaccine Quad .5 mL IM 00:00:00 [facility] 6+ MO Branch Influenza Virus 2019-03-28 Completed Universit y of Vaccine Quad IM 00:00:00 [place] [facility] Multi-dose 6+ MO Branch Influenza Virus 2019-03-28 Completed Universit y of Vaccine Quad .5 mL IM 00:00:00 [facility] 6+ MO Branch Influenza Virus 2019-03-28 Completed Universit y of Vaccine Quad IM 00:00:00 [place] [facility] Multi-dose 6+ MO Branch Influenza Virus 2019-03-28 Completed Universit y of Vaccine Quad .5 mL IM 00:00:00 [facility] 6+ MO Branch Influenza Virus 2019-03-28 Completed Universit y of Vaccine Quad IM 00:00:00 [place] [facility] Multi-dose 6+ MO Branch Influenza Virus 2019-03-28 Completed Universit y of Vaccine Quad .5 mL IM 00:00:00 [facility] 6+ MO Branch Influenza Virus 2019-03-28 Completed Universit y of Vaccine Quad IM 00:00:00 [place] [facility] Multi-dose 6+ MO Branch Influenza Virus 2019-03-28 Completed Universit y of Vaccine Quad .5 mL IM 00:00:00 [facility] 6+ MO Branch Influenza Virus 2019-03-28 Completed Universit y of Vaccine Quad IM 00:00:00 [place] [facility] Multi-dose 6+ MO Branch Influenza Virus 2019-03-28 Completed Universit y of Vaccine Quad .5 mL IM 00:00:00 [facility] 6+ MO Branch Pneumococcal 13 2018-10-13 Completed Universit y of Conjugate, PCV13 00:00:00 [place] [facility] (Prevnar 13) Branch Meningococcal 2018-10-13 Completed University of Polysaccharide 00:00:00 [place] [facility]a (groups A, C, Y and Branc h W-135) conjugate vaccine (MCV4P) Pneumococcal 2018-10-13 Completed Universit y of Conjugate, PCV13 00:00:00 [place] [facility] (Prevnar 13) Branch Meningococcal 2018-10-13 Completed University of Polysaccharide 00:00:00 [place] [facility] (groups A, C, Y and Branc h W-135) conjugate vaccine (MCV4P) Pneumococcal 2018-10-13 Completed Universit y of Conjugate, PCV13 00:00:00 [facility] dical (Prevnar 13) Branch Meningococcal 2018-10-13 Completed University of Polysaccharide 00:00:00 [place] [facility] (groups A, C, Y and Branc h W-135) conjugate vaccine (MCV4P) Pneumococcal 2018-10-13 Completed Universit y of Conjugate, PCV13 00:00:00 [facility] dical (Prevnar 13) Branch Meningococcal 2018-10-13 Completed University of Polysaccharide 00:00:00 [place] [facility] (groups A, C, Y and Branc h W-135) conjugate vaccine (MCV4P) Pneumococcal 2018-10-13 Completed Universit y of Conjugate, PCV13 00:00:00 [facility] dical (Prevnar 13) Branch Meningococcal 2018-10-13 Completed University of Polysaccharide 00:00:00 [place] [facility] (groups A, C, Y and Branc h W-135) conjugate vaccine (MCV4P) Pneumococcal 13 2018-10-13 Completed Universit y of Conjugate, PCV13 00:00:00 [facility] dical (Prevnar 13) Branch Meningococcal 2018-10-13 Completed University of Polysaccharide 00:00:00 [place] [facility] (groups A, C, Y and Branc h W-135) conjugate vaccine (MCV4P) Pneumococcal 2018-10-13 Completed Universit y of Conjugate, PCV13 00:00:00 [place] [facility] (Prevnar 13) Branch Meningococcal 2018-10-13 Completed University of Polysaccharide 00:00:00 [place] [facility] (groups A, C, Y and Branc h W-135) conjugate vaccine (MCV4P) Pneumococcal 13 2018-10-13 Completed Universit y of Conjugate, PCV13 00:00:00 [place] [facility] (Prevnar 13) Branch Meningococcal 2018-10-13 Completed University of Polysaccharide 00:00:00 [place] [facility] (groups A, C, Y and Branc h W-135) conjugate vaccine (MCV4P) Pneumococcal 13 2018-10-13 Completed Universit y of Conjugate, PCV13 00:00:00 [place] [facility] (Prevnar 13) Branch Meningococcal 2018-10-13 Completed University of Polysaccharide 00:00:00 [place] [facility] (groups A, C, Y and Branc h W-135) conjugate vaccine (MCV4P) Pneumococcal 13 2018-10-13 Completed Universit y of Conjugate, PCV13 00:00:00 [place] [facility] (Prevnar 13) Branch Meningococcal 2018-10-13 Completed University of Polysaccharide 00:00:00 [place] [facility] fara (groups A, C, Y and Branc h W-135) conjugate vaccine (MCV4P) Pneumococcal 13 2018-10-13 Completed Universit y of Conjugate, PCV13 00:00:[address] [facility] dical (Prevnar 13) Branch Meningococcal 2018-10-13 Completed University of Polysaccharide 00:00:00 [place] [facility] (groups A, C, Y and Branc h W-135) conjugate vaccine (MCV4P) Pneumococcal 13 2018-10-13 Completed Universit y of Conjugate, PCV13 00:00:00 [facility] dical (Prevnar 13) Branch Meningococcal 2018-10-13 Completed University of Polysaccharide 00:00:00 [place] [facility] fara (groups A, C, Y and Branc h W-135) conjugate vaccine (MCV4P) Meningococcal MCV4P 2018-10-13 Completed [facility] 00:00:00 Hospital Pneumococcal 2018-10-13 Completed [facility] Conjugate 13-Valent 00:00:00 Hospi nghia Pneumococcal 13 2018-09-16 Completed Universit y of Conjugate, PCV13 00:00:00 [place] [facility] (Prevnar 13) Branch Pneumococcal 13 2018-09-16 Completed Universit y of Conjugate, PCV13 00:00:00 [place] [facility] (Prevnar 13) Branch Pneumococcal 13 2018-09-16 Completed Universit y of Conjugate, PCV13 00:00:00 [facility] dical (Prevnar 13) Branch Pneumococcal 13 2018-09-16 Completed Universit y of Conjugate, PCV13 00:00:00 [place] [facility] (Prevnar 13) Branch Pneumococcal 13 2018-09-16 Completed Universit y of Conjugate, PCV13 00:00:00 [place] [facility] (Prevnar 13) Branch Pneumococcal 13 2018-09-16 Completed Universit y of Conjugate, PCV13 00:00:00 [place] [facility] (Prevnar 13) Branch Pneumococcal 13 2018-09-16 Completed Universit y of Conjugate, PCV13 00:00:00 [place] [facility] (Prevnar 13) Branch Pneumococcal 13 2018-09-16 Completed Universit y of Conjugate, PCV13 00:00:00 [place] [facility] (Prevnar 13) Branch Pneumococcal 13 2018-09-16 Completed Universit y of Conjugate, PCV13 00:00:00 [place] [facility] (Prevnar 13) Branch Pneumococcal 13 2018-09-16 Completed Universit y of Conjugate, PCV13 00:00:00 [facility] dical (Prevnar 13) Branch Pneumococcal 13 2018-09-16 Completed Universit y of Conjugate, PCV13 00:00:00 [place] [facility] (Prevnar 13) Branch Pneumococcal 13 2018-09-16 Completed Universit y of Conjugate, PCV13 00:00:00 [facility] dical (Prevnar 13) Branch Pneumococcal 2018-09-16 Completed [facility] Conjugate 13-Valent 00:00:00 Hospi nghia TDAP 2018-09-12 Completed University of 00:00:00 [facility] Meningococcal 2018-09-12 Completed University of Polysaccharide 00:00:00 [place] [facility] (groups A, C, Y and Branc h W-135) conjugate vaccine (MCV4P) TDAP 2018-09-12 Completed University of 00:00:00 [facility] Meningococcal 2018-09-12 Completed University of Polysaccharide 00:00:00 [place] [facility] (groups A, C, Y and Branc h W-135) conjugate vaccine (MCV4P) TDAP 2018-09-12 Completed University of 00:00:00 [facility] Meningococcal 2018-09-12 Completed University of Polysaccharide 00:00:00 [place] [facility] fara (groups A, C, Y and Branc h W-135) conjugate vaccine (MCV4P) TDAP 2018-09-12 Completed University of 00:00:00 [facility] Meningococcal 2018-09-12 Completed University of Polysaccharide 00:00:00 [place] [facility] (groups A, C, Y and Branc h W-135) conjugate vaccine (MCV4P) TDAP 2018-09-12 Completed University of 00:00:00 [facility] Meningococcal 2018-09-12 Completed University of Polysaccharide 00:00:00 [place] [facility] (groups A, C, Y and Branc h W-135) conjugate vaccine (MCV4P) TDAP 2018-09-12 Completed University of 00:00:00 [facility] Meningococcal 2018-09-12 Completed University of Polysaccharide 00:00:00 [place] [facility] (groups A, C, Y and Branc h W-135) conjugate vaccine (MCV4P) TDAP 2018-09-12 Completed University of 00:00:00 [facility] Meningococcal 2018-09-12 Completed University of Polysaccharide 00:00:00 [place] [facility] (groups A, C, Y and Branc h W-135) conjugate vaccine (MCV4P) TDAP 2018-09-12 Completed University of 00:00:00 [facility] Meningococcal 2018-09-12 Completed University of Polysaccharide 00:00:00 [place] [facility] (groups A, C, Y and Branc h W-135) conjugate vaccine (MCV4P) TDAP 2018-09-12 Completed University of 00:00:00 [facility] Meningococcal 2018-09-12 Completed University of Polysaccharide 00:00:00 [place] [facility] (groups A, C, Y and Branc h W-135) conjugate vaccine (MCV4P) TDAP 2018-09-12 Completed University of 00:00:00 [facility] Meningococcal 2018-09-12 Completed University of Polysaccharide 00:00:00 [place] [facility] (groups A, C, Y and Branc h W-135) conjugate vaccine (MCV4P) TDAP 2018-09-12 Completed University of 00:00:00 [facility] Meningococcal 2018-09-12 Completed University of Polysaccharide 00:00:00 [place] [facility] (groups A, C, Y and Branc h W-135) conjugate vaccine (MCV4P) TDAP 2018-09-12 Completed University of 00:00:00 [facility] Meningococcal 2018-09-12 Completed University of Polysaccharide 00:00:00 [place] [facility] (groups A, C, Y and Branc h W-135) conjugate vaccine (MCV4P) Tdap 2018-09-12 Completed [facility] 00:00:00 [facility] Meningococcal MCV4P 2018-09-12 Completed [facility] 00:00:00 [facility] Influenza Virus 2018-03-29 Completed Universit y of Vaccine 00:00:00 [facility] Influenza Virus 2018-03-29 Completed Universit y of Vaccine 00:00:00 [facility] Influenza Virus 2018-03-29 Completed Universit y of Vaccine 00:00:00 [facility] Influenza Virus 2018-03-29 Completed Universit y of Vaccine 00:00:00 [facility] Influenza Virus 2018-03-29 Completed Universit y of Vaccine 00:00:00 [facility] Influenza Virus 2018-03-29 Completed Universit y of Vaccine 00:00:00 [facility] Influenza Virus 2018-03-29 Completed Universit y of Vaccine 00:00:00 [facility] Influenza Virus 2018-03-29 Completed Universit y of Vaccine 00:00:00 [facility] Influenza Virus 2018-03-29 Completed Universit y of Vaccine 00:00:00 [facility] Influenza Virus 2018-03-29 Completed Universit y of Vaccine 00:00:00 [facility] Influenza Virus 2018-03-29 Completed Universit y of Vaccine 00:00:00 [facility] Influenza Virus 2018-03-29 Completed Universit y of Vaccine 00:00:00 [facility] Influenza, 2018-03-29 Completed [facility] Unspecified 00:00:00 [facility] Influenza Virus 2018-03-14 Completed Universit y of Vaccine Quad IM 3+ 00:00:00 [facility] Influenza Virus 2018-03-14 Completed Universit y of Vaccine Quad IM 3+ 00:00:00 [facility] Influenza Virus 2018-03-14 Completed Universit y of Vaccine Quad IM 3+ 00:00:00 [facility] Influenza Virus 2018-03-14 Completed Universit y of Vaccine Quad IM 3+ 00:00:00 [facility] Influenza Virus 2018-03-14 Completed Universit y of Vaccine Quad IM 3+ 00:00:00 [facility] Influenza Virus 2018-03-14 Completed Universit y of Vaccine Quad IM 3+ 00:00:00 [facility] Influenza Virus 2018-03-14 Completed Universit y of Vaccine Quad IM 3+ 00:00:00 [facility] Influenza Virus 2018-03-14 Completed Universit y of Vaccine Quad IM 3+ 00:00:00 [facility] Influenza Virus 2018-03-14 Completed Universit y of Vaccine Quad IM 3+ 00:00:00 [facility] Branch Influenza Virus 2018-03-14 Completed Universit y of Vaccine Quad IM 3+ 00:00:00 [facility] Branch Influenza Virus 2018-03-14 Completed Universit y of Vaccine Quad IM 3+ 00:00:00 [facility] Branch Influenza Virus 2018-03-14 Completed Universit y of Vaccine Quad IM 3+ 00:00:00 [facility] Branch FLUZONE QUAD PF 2018-03-14 Completed [facility] 00:00:00 Hospital Influenza Virus 2015-02-12 Completed Universit y of Vaccine Quad ID 18-64 00:00:00 [facility] YRS Branch Influenza Virus 2015-02-12 Completed Universit y of Vaccine Quad ID 18-64 00:00:00 [facility] Branch Influenza Virus 2015-02-12 Completed Universit y of Vaccine Quad ID 18-64 00:00:00 [facility] Influenza Virus 2015-02-12 Completed Universit y of Vaccine Quad ID 18-64 00:00:00 [facility] as [facility] YRS Branch Influenza Virus 2015-02-12 Completed Universit y of Vaccine Quad ID 18-64 00:00:00 [facility] Branch Influenza Virus 2015-02-12 Completed Universit y of Vaccine Quad ID 18-64 00:00:00 [facility] Influenza Virus 2015-02-12 Completed Universit y of Vaccine Quad ID 18-64 00:00:00 [facility] Influenza Virus 2015-02-12 Completed Universit y of Vaccine Quad ID 18-64 00:00:00 [facility] Influenza Virus 2015-02-12 Completed Universit y of Vaccine Quad ID 18-64 00:00:00 [facility] YRS Branch Influenza Virus 2015-02-12 Completed Universit y of Vaccine Quad ID 18-64 00:00:00 [facility] as [facility] YRS Branch Influenza Virus 2015-02-12 Completed Universit y of Vaccine Quad ID 18-64 00:00:00 [facility] Branch Influenza Virus 2015-02-12 Completed Universit y of Vaccine Quad ID 18-64 00:00:00 [facility] Branch Vital Signs Vital Name Observation Time Observation Value Comments Source Systolic blood 2021-10-08 19:03:00 115 mm[Hg] Univer sity of pressure [facility] Diastolic blood 2021-10-08 19:03:00 74 mm[Hg] Unive rsity of pressure [facility] Heart rate 2021-10-08 19:03:00 80 /min Universi ty of [facility] Body temperature 2021-10-08 19:03:00 37 Jo Univ ersity of [facility] Respiratory rate 2021-10-08 19:03:00 17 /min Univ ersity of [facility] Oxygen saturation in 2021-10-08 19:03:00 95 /min University Arterial blood by [facility] Pulse oximetry Branch Body height 2021-10-08 18:07:00 177.8 cm Universi ty of [facility] Body weight 2021-10-08 18:07:00 86.183 kg Universi ty of [facility] BMI 2021-10-08 18:07:00 27.26 kg/m2 Universi ty of [facility] Systolic blood 2021-09-09 17:58:00 130 mm[Hg] Univer sity of [facility] Diastolic blood 2021-09-09 17:58:00 85 mm[Hg] Unive rsity of [facility] Heart rate 2021-09-09 17:58:00 96 /min Universi ty of [facility] Body height 2021-09-09 17:58:00 177.8 cm Universi ty of [facility] Body weight 2021-09-09 17:58:00 87.363 kg Universi ty of [facility] BMI 2021-09-09 17:58:00 27.64 kg/m2 Universi ty [facility] Systolic blood 2021-05-05 15:40:00 142 mm[Hg] Method ist [facility] pressure Diastolic blood 2021-05-05 15:40:00 90 mm[facility]Hg[facility] pressure Heart rate 2021-05-05 15:40:00 68 /[facility] Respiratory rate 2021-05-05 15:40:00 16 /min [facility] 2021-05-05 15:40:00 [facility] 2021-05-05 15:40:00 [facility] BMI 2021-05-05 15:40:00 28.52 kg/m2 [facility] Oxygen saturation in 2021-05-05 15:40:00 98 /min [facility] Arterial blood by Pulse oximetry Procedures Procedure Date / Time Performing Clinician Source Performed COMPREHENSIVE METABOLIC 2021-12-30 15:22:00 Brittany Willis [facility] PANEL CBC WITH PLATELET AND 2021-12-30 15:22:00 Brittany Willis [facility] DIFFERENTIAL T CELL LYMPHOCYTE SUBSET 2021-12-30 15:22:00 Brittany Willis [facility] PANEL 4 HUMAN IMMUNODEFICIENCY 2021-12-30 15:22:00 Brittany Willis [facility] VIRUS 1 (HIV-1), QUANTITATIVE PCR (NIH) LIPID PANEL 2021-12-30 15:22[facility] 2021-11-19 19:05:00 Brittany Willis [facility] VIRUS 1 (HIV-1), QUANTITATIVE PCR (NIH) CBC WITH PLATELET AND 2021-11-06 20:32:00 Brittany Willis [facility] DIFFERENTIAL COMPREHENSIVE METABOLIC 2021-11-06 20:32:00 Brittany Willis [facility] PANEL LIPID PANEL 2021-11-06 20:32:00 Brittany Willis [facility] T CELL LYMPHOCYTE SUBSET 2021-11-06 20:32:00 Brittany Willis [facility] PANEL 4 CONSENT/REFUSAL FOR 2021-10-08 05:01:00 Doctor Unassigned, [facility] DIAGNOSIS AND TREATMENT [facility] HUMAN IMMUNODEFICIENCY 2021-04-23 15:58:00 Brittany Willis [facility] VIRUS 1 (HIV-1), QUANTITATIVE PCR ([facility]) T CELL LYMPHOCYTE SUBSET 2021-04-23 15:58:00 Brittany Willis [facility] PANEL 4 COMPREHENSIVE METABOLIC 2021-04-23 15:58:00 Brittany Willis [facility] PANEL CBC WITH PLATELET AND 2021-04-23 15:58:00 Brittany Willis [facility] DIFFERENTIAL EXTERNAL COLONOSCOPY 2019-05-29 14:45:00 Doctor Unassigned, [facility] Plan of Care Planned Activity Planned Date Details Comments Source Future Scheduled 2022-02-26 HEPATITIS B VACCINES Met [facility] Test 11:07:32 (1 of 3 - 3-dose series) [code = HEPATITIS B VACCINES (1 of 3 - 3-dose series)] Future Scheduled 2022-02-26 COVID-19 VACCINE (#1) [facility] Test 11:07:32 [code = COVID-19 VACCINE (#1)] Future Scheduled 2022-02-26 DIABETES: RETINAL EYE [facility] Test 11:07:32 EXAM [code = DIABETES: RETINAL EYE EXAM] Future Scheduled 2022-02-26 DIABETIC FOOT EXAM [facility] Test 11:07:32 [code = DIABETIC FOOT EXAM] Future Scheduled 2022-02-26 Hepatitis C screening [facility] Test 11:07:32 (procedure) [code = 644565776] Future Scheduled 2022-02-26 SHINGLES VACCINES (1 Met [facility] Test 11:07:32 of 2) [code = SHINGLES VACCINES (1 of 2)] Future Scheduled 2022-02-26 COLONOSCOPY SCREENING [facility] Test 11:07:32 [code = COLONOSCOPY SCREENING] Future Scheduled 2022-02-26 Pneumococcal Vaccine: [facility] Test 11:07:32 Pediatrics (0 to 5 Years) and At-Risk Patients (6 to 64 Years) (2 - PPSV23 if available, else PCV20) [code = Pneumococcal Vaccine: Pediatrics (0 to 5 Years) and At-Risk Patients (6 to 64 Years) (2 - PPSV23 if available, else PCV20)] Encounters Start End Encounter Admission Attending Care Care Encounter Source Date/Time Date/Time Type Type Clinicians Facility Department ID 2022-02-26 2022-02-26 Refill Lazaro 1.2.840.1 [id number] Methodi 00:00:00 00:00:[address] 3.430.2.7 Hospit a .3.443961 l .8 2022-01-19 2022-01-19 Office Lazaro 1.2.840.1 [id number] Methodi 10:30:00 11:07:41 Visit Brittany L. 59004.1.[address] 3.430.2.7 Hospit a .3.590744 l .8 2022-01-19 2022-01-19 Outpatient [facility]AROCAPE [facility] [id number] [place] 00:00:00 00:00:[address] BRITTANY [address] 2022-01-19 2022-01-19 Travel 1.2.840.1 [id number] [id number] Methodi 00:00:00 00:00:[address] 3.430.2.7 0.2.7.3.698 Ho spita .3.603608 084.8 l .8 2022-01-08 2022-01-[address] [facility] 1.2.840.114 [id number] Univers 00:00:00 00:00:00 [facility] [id number] it y of [place] [id number] Hoang as LEVON?BLEA [phone] [address] OFFICE BUILDING 2021-12-30 2021-12-30 Lab Lazaro, 1.2.840.1 [id number] Methodi 10:30:00 10:35:00 Brittany Yates [address]218.1.[address] 3.430.2.7 Hospit a .3.951661 l .8 2021-12-30 2021-12-30 Outpatient [facility]AROCAPE [facility] [id number] [place] 00:00:00 00:00:[address]ITTANY [address] 2021-12-30 2021-12-30 Orders Matthews, 1.2.840.1 [id number] Methodi 00:00:00 00:00:00 Only Petty 03458.1.[address] [place] 3.430.2.7 Hospi ta .3.665559 l .8 2021-12-11 2021-12-[address] [facility] 1.2.840.114 [id number] Univers 00:00:00 00:00:00 Fan HEALTH [id number] it y of [facility] 4.2.7.2.686 Hoang as LEVON?BLEA [id number] [place] dicalicia MCNALLY 0[address] [facility] OFFICE [facility] 2021-11-23 2021-11-23 Refadilson Peraza [facility] 1.2.840.114 [id number] Univers 00:00:00 00:00:00 [facility] [id number] it y of [place] [id number] Hoang as LEVON?BLEA [phone] Ks anamaria MCNALLY 0[address] [facility] OFFICE [facility] 2021-11-04 2021-11-04 Lab Lazaro, 1.2.840.1 [id number] Methodi 09:15:00 09:20:00 Brittany [address]ates [address]288.1.[address] 3.430.2.7 Hospit a .3.770194 l .8 2021-11-04 2021-11-04 Outpatient LAZAROCAPE [facility] [id number] [place] 00:00:00 00:00:00 BRITTANY Sanchez [facility] 2021-10-12 2021-10-12 Laboratory Only, Ang Db Test [facility] 1.2.8 40.114 [id number] Univers 11:00:00 11:15:00 Only Charity Zuleta [facility] [id number] ity of [place] [id number] Hoang as LEVON?BLEA [id number] [place]s anamaria MCNALLY [address] [facility] OFFICE [facility] 2021-10-12 2021-10-12 Outpatient R ANGEL LUIS [facility] [id number] Univers 11:00:00 11:04:59 CHARITY ity [facility] 2021-10-12 2021-10-12 Telephone LUANA Diallo 1.2.946.048 [id number] Univers 00:00:00 00:00:00 Chidi HESTER [id number] ity of [facility] [id number] Hoang as [phone] [address] 2021-10-08 2021-10-08 Nurse Therapy, Adc Covid Infusion [facility] 1.2.840.114 [id number] Univers 13:00:00 14:00:00 Visit Caesar Epstein 350.1.13.10 [place] of [place].2.[place] SUR[place]ICAL [phone] [facility] [address] 2021-10-08 2021-10-08 Outpatient R MILENA, [facility] [id number] Univers 13:00:00 13:00:00 CAESAR ity of [facility] 2021-10-08 2021-10-08 Telephone LUANA Jesus 1.2.993.036 [id number] Univers 00:00:00 00:00:00 Shannon HESTER 350.1.13.10 i ty of [facility] 4.2.7.2.686 Hoang as [phone] [facility] [address] 2021-10-08 2021-10-08 Orders Doctor LUANA 1.2.840.114 [id number] Univers 00:00:00 00:00:00 Only Unassigned, MIR 350.1.13.10 ity of [place] [facility] 4.2.7.2.686 Hoang as [phone] [facility] [address] 2021-10-07 2021-10-07 Outpatient R WINNIE [facility] [id number] Univers 09:30:00 [facility]50:[facility]-10-07 2021-10-07 Laboratory Only, Ang Db Test [facility] 1.2.8 40.114 [id number] Univers 09:30:00 09:45:00 Only Galloilkimberly Mowdo 350.1.13.10 ity of [place] 4.2.7.2.686 Hoang as LEVON?BLEA [phone] Ks paulina[address] MEDICAL OFFICE BUILDING 2021-10-07 2021-10-07 Outpatient R UNKNOWN, [facility] [id number] Univers 09:20:00 09:20:00 ATTENDING ity [facility] 2021-10-03 2021-10-03 Outpatient R [facility] [id number] Univers 09:00:00 09:00:00 ity [facility] 2021-09-16 2021-09-16 Telephone Team, [facility] LUANA 1.2.840.114 [id number] Univers 00:00:00 00:00:00 Health MIR 350.1.13.[address] [facility] 4.2.7.2.686 [place] [phone] [facility] [address] 2021-09-11 2021-09-11 Plate Embosser Lab, Ang - Db [facility] 1.2.840.1 14 [id number] Univers 08:00:00 08:15:00 Visit Fan Peraza 350.1.13.10 ity of [place] 4.2.7.2.686 Hoang as LEVON?BLEA [phone] [facility] [address] MEDICAL OFFICE BUILDING 2021-09-11 2021-09-11 Outpatient Dilan [facility] [id number] Univers 08:00:00 08:00:00 FAN ity [facility] 2021-09-09 2021-09-[address] [facility] 1.2.840.114 [id number] Univers 13:15:00 13:30:00 Visit [facility] 350.1.13.10 it y of [place] 4.2.7.2.686 Hoang as LEVON?BLEA [phone] [facility] [address] MEDICAL OFFICE [facility] 2021-09-09 2021-09-09 Outpatient Dilan PERAZA [facility] [id number] Univers 13:15:00 13:15:00 FAN ity [facility] 2021-09-09 2021-09-09 Orders Doctor CRAFT 1.2.840.114 [id number] Univers 00:00:00 00:00:00 Only Unassigned, MIR 350.1.13.10 [facility] 4.2.7.2.686 Hoang as [phone] [facility] [address] 2021-08-17 2021-08-17 Outpatient Dilan [facility] [id number] Univers 09:45:00 09:45:00 FAN lares [facility] 2021-08-17 2021-08-17 Outpatient Dilan [facility] [id number] Univers 09:45:00 09:45:00 FAN ity [facility] 2021-06-17 2021-06-17 Telephone LUANA Gao 1.2.602.462 [id number] Univers 00:00:00 00:00:00 Jackie HESTER 350.1.13.10 it y of [facility] 4.2.7.2.686 Hoang as [phone] [address] 2021-06-16 2021-06-16 Outpatient R KING ISAAC, [facility] [id number] Univers 10:00:00 09:46:51 NATTY luda [facility] 2021-05-25 2021-05-25 Outpatient R [facility] [id number] Univers 09:30:00 09:48:20 FAN jaime [facility] 2021-05-25 2021-05-[address] [facility] 1.2.840.114 [id number] Univers 09:30:00 09:48:20 Visit [facility] 350.1.13.10 it y of [place] 4.2.7.2.686 Hoang as LEVON?BLEA [phone] [address] OFFICE [facility] 2021-05-24 2021-05-24 Refill Lazaro, 1.2.840.1 [id number] Methodi 00:00:00 00:00:[address]ates [address] 3.430.2.7 Hospit a .3.691810 l .8 2021-05-08 2021-05-[address] [facility] 1.2.299.310 [id number] Univers 00:00:00 00:00:00 [facility] 350.1.13.10 it y of [place] 4.2.7.2.686 Hoang as LEVON?BLEA [phone] [address] OFFICE [facility] 2021-05-05 2021-05-05 Office Lazaro 1.2.840.1 [id number] Methodi 10:00:00 10:31:22 Visit Brittany Yates 99283.1.[address] 3.430.2.7 Hospit a .3.852752 l .8 2021-05-05 2021-05-05 Travel 1.2.840.1 1.2.751.992 1601 [id number] Methodi 00:00:00 00:00:[address] 3.430.2.7 0.2.7.3.698 Ho spita .3.585937 084.8 l .8 2021-05-05 2021-05-05 Outpatient LAZARO, [facility] [id number] [address] [place] 00:00:00 00:00:00 BRITTANY Ogden Method i st 2021-05-01 2021-05-[address] [facility] 1.2.208.581 [id number] Univers 00:00:00 00:00:00 [facility] 350.1.13.10 it y of [place] 4.2.7.2.686 Hoang as LEVON?BLEA [phone] [address] MEDICAL OFFICE [facility] 2021-05-01 2021-05-[address] [facility] 1.2.646.912 [id number] Univers 00:00:00 00:00:00 [facility] 350.1.13.10 it y of [place] 4.2.7.2.686 Hoang as LEVON?BLEA [phone] [address] OFFICE [facility] 2021-04-29 2021-04-29 Plate Embosser Lab, Balaji - Augustine [facility] 1.2.840.1 14 [id number] Univers 07:30:00 07:45:00 Visit Fan Peraza [facility] 350.1.13.10 ity of [place] 4.2.7.2.686 Hoang as LEVON?BLEA [phone] [facility] [address] MEDICAL OFFICE [facility] 2021-04-29 2021-04-29 Outpatient R ZEKE [facility] [id number] Univers 07:00:00 07:20:31 FAN lares [facility] 2021-04-29 2021-04-[address] [facility] 1.2.840.114 [id number] Univers 07:00:00 07:15:00 Visit [facility] 350.1.13.10 it y of [place] 4.2.7.2.686 Hoang as LEVON?BLEA [phone] [address] OFFICE [facility] 2021-04-29 2021-04-29 Outpatient R PERAZA [facility] [id number] Univers 07:00:00 07:00:00 FAN sandiejaime [facility] 2021-04-25 2021-04-25 Refill Zeke [facility] 1.2.840.114 [id number] Univers 00:00:00 00:00:00 [facility] 350.1.13.10 it y [facility] 4.2.7.2.686 Hoang as PROFESSIO [phone] Ks dical [address] OFFICE BUILDING ONE 2021-04-23 2021-04-23 Travel 1.2.840.1 1.2.974.231 3042 [id number] Methodi 00:00:00 00:00:00 46915.1.1 350.1.13.43 810 3.430.2.7 0.2.7.3.698 Ho spita .3.175941 084.8 l .8 2021-04-23 2021-04-23 Outpatient [facility] [id number] [place] 00:00:00 00:00:00 BRITTANY 813 Method i 2021-02-10 2021-02-10 Outpatient [facility] [id number] [address] [place] 00:00:00 00:00:00 BRITTANY [address] 2020 2020 Telephone MurrayLUANA patrick 1.2.606.010 [id number] Univers 00:00:00 00:00:00 Jackie HESTER 350.1.13.10 it y of [facility] 4.2.7.2.686 Hoang as [phone] [address] 2020-12-06 2020-12-06 Outpatient R UNKNOWN, [facility] [id number] Univers 10:00:00 10:00:00 ATTENDING ity [facility] 2020-12-05 2020-12-05 Outpatient R [facility] [id number] Univers 09:20:00 09:20:00 ity [facility] 2020-10-27 2020-10-27 Plate Embosser Lab, Adc Fam Pob I [facility] 1.2. 840.114 [id number] Univers 07:24:13 07:44:13 Visit Fan Peraza [facility] 350.1.13.10 ity of [place] 4.2.7.2.686 [place]ang as Professio [phone] [place] dical nal [address] Office [facility] 2020-10-27 2020-10-[address] [facility] 1.2.840.114 [id number] [facility] 07:06:00 07:24:23 Visit [facility] 350.1.13.10 it y of [place] 4.2.7.2.686 Hoang as Professio [phone] [place] dical nal [address] Office [facility] 2020-10-27 2020-10-27 Outpatient R [facility] [id number] [facility] 07:00:00 07:00:00 FAN itjaime [facility] 2020-10-27 2020-10-[address] [facility] 1.2.720.969 [id number] [facility] 00:00:00 00:00:00 [facility] 350.1.13.10 it y of [place] 4.2.7.2.686 [place]ang as Professio [phone] [place] dical nal [address] Office [facility] 2020-10-25 2020-10-[address] [facility] 1.2.840.114 [id number] [facility] 00:00:00 00:00:00 [facility] 350.1.13.10 it y of [place] 4.2.7.2.686 Hoang as Professio [phone] [place] dical nal [address] Office [facility] One 2020-09-09 2020-09-09 Outpatient LAZARO, [facility] [id number] [address] [place] 00:00:00 00:00:00 BRITTANY 872 Method i 2020-08-29 2020-08-29 [facility] [id number] [address] [place] 00:00:00 00:00:00 BRITTANY 978 Method i 2020-08-11 2020-08-11 Outpatient [facility] [id number] [address] [place] 00:00:00 00:00:00 BRITTANY 648 Method i 2020-07-30 2020-07-30 Laboratory Lab, Adc Fam Pob I [facility] 1.2. 840.114 [id number] Univers 11:52:53 12:12:53 Only Shelley De La Rosa [facility] 350.1.13.10 ity of [place] 4.2.7.2.686 Hoang as Professio [phone] [place] dical nal [address] Office [facility] 2020-07-30 2020-07-30 Outpatient [facility] [id number] Univers 11:40:00 11:40:00 SHELLEY lares [facility] 2020-07-01 2020-07-[address] [facility] 1.2.840.114 [id number] Univers 00:00:00 00:00:00 Outreach Marck [facility] 350.1.13.10 i ty of [facility] 4.2.7.2.[place] [phone] [place]s dical [address] 2020-05-19 2020-05-19 Outpatient [facility] [id number] [address] [place] 00:00:00 00:00:00 BRITTANY 019 Method i 2020-05-19 2020-05-19 Outpatient [facility] [id number] [address] [place] 00:00:00 00:00:00 BRITTANY 913 Method i 2020-04-28 2020-04-28 Outpatient R [facility] [id number] Univers 13:15:00 13:15:00 FAN jaime [facility] 2020-04-28 2020-04-[address] [facility] 1.2.840.114 [id number] Univers 12:45:50 13:00:50 Visit [facility] 350.1.13.10 it y of [place] 4.2.7.2.686 Hoang as Professio [phone] [place] dical nal [address] Office [facility] One 2020-04-28 2020-04-28 Refadilson Travis [facility] 1.2.840.114 [id number] Univers 00:00:00 00:00:00 [facility] 350.1.13.10 it y of [place] 4.2.7.2.686 Hoang as Professio [phone] Ks dical nal [address] [place] [address] Office [facility] One 2020-04-22 2020-04-22 Laboratory Lab, [facility] I [facility] 1.2. 840.114 [id number] Univers 17:40:08 18:00:08 Only Kayleen [facility] 350.1.13.10 ity of [place] 4.2.7.2.686 Hoang as Professio [phone] [facility] nal [address] [place] [address] Office [facility] One 2020-04-22 2020-04-22 Outpatient R ANGY [facility] [id number] Univers 18:00:00 18:00:00 KAYLEEN ity of [facility] 2020-04-20 2020-04-[address] [facility] 1.2.840.114 [id number] Univers 00:00:00 00:00:00 Fan [facility] 350.1.13.10 it y of [place] 4.2.7.2.686 Hoang as Professio [phone] [address] One 2020-04-18 2020-04-18 Telephone Lab, [facility] 1.2.840.114 [id number] Univers 00:00:00 00:00:00 Fam Pob I Health 350.1.13.10 ity of [place] 4.2.7.2.686 Hoang as Professio [phone] [address] One 2020-04-16 2020-04-16 Laboratory Lab, [facility] I [facility] 1.2. 840.114 [id number] Univers 19:16:12 19:36:12 Only Hilda [facility] 350.1.13.10 ity of [place] 4.2.7.2.686 Hoang as Professio [phone] [address] Office [facility] One 2020-04-16 2020-04-16 Outpatient R ALINE [facility] [id number] Univers 19:20:00 19:20:00 HILDA lares o f [facility] 2020-04-14 2020-04-[address] [facility] 1.2.840.114 [id number] Univers 00:00:00 00:00:00 Fan [facility] 350.1.13.10 it y of [place] 4.2.7.2.686 Hoang as Professio [phone] [place]s anamaria Subramanian [place] Office Building One 2020-04-07 2020-04-07 William Peraza [facility] 1.2.840.114 [id number] Univers 00:00:00 00:00:00 Fan [facility] 350.1.13.10 it y of [place] 4.2.7.2.686 Hoang as Professio [phone] Ks anamaria nal [address] [place] [address] Office Building One 2020-02-22 2020-02-[address] [facility] 1.2.840.114 [id number] Univers 00:00:00 00:00:00 Fan [facility] 350.1.13.10 it y of [place] 4.2.7.2.686 Hoang as Professio [phone] Ks anamaria nal [address] [place] [address] One 2020-02-08 2020-02-08 Urgent Provider, [facility] 1.2.840.114 [id number] Univers 10:22:07 10:55:44 Care Charlene [facility] 350.1.13.10 ity of [place] 4.2.7.2.686 [place]ang as Professio [phone] Ks paulina[address] Office [facility] One 2020-02-08 2020-02-08 Outpatient R [facility] [id number] Univers 10:20:00 10:20:00 ity of [facility] 2020-01-16 2020-01-[address] [facility] 1.2.840.114 [id number] Univers 00:00:00 00:00:00 [facility] 350.1.13.10 it y of [place] 4.2.7.2.686 Hoang as Professio [phone] Ks paulina[address] Office [facility] One 2020-01-04 2020-01-[address] [facility] 1.2.840.114 [id number] Univers 00:00:00 00:00:00 Fan [facility] 350.1.13.10 it y of [place] 4.2.7.2.686 Hoang as Professio [phone] Me [address] Office [facility] 2019-12-25 2019-12-25 Urgent Provider, Ang [facility] 1.2.840.114 [id number] Univers 18:35:18 19:46:43 Care Yady [facility] 350.1.13.10 ity of [place] 4.2.7.2.686 Hoang as Professio [phone] [address] Office [facility] 2019-12-25 2019-12-25 Outpatient R [facility] [id number] Univers 19:00:00 19:00:00 ity of [facility] 2019-12-21 2019-12-21 Letter TrishLUANA tobar 1.2.840.114 [id number] Univers 00:00:00 00:00:00 (Out) Danay HESTER 350.1.13.10 it y of [facility] 4.2.7.2.686 Hoang as [phone] [address] 2019-12-20 2019-12-20 Laboratory Lab, Adc Fam Pob I [facility] 1.2. 840.114 [id number] Univers 10:20:40 10:40:40 Only Alireza Changa [employer] 350.1.13.10 ity of [place] 4.2.7.2.686 Hoang as Professio [phone] [address] 2019-12-20 2019-12-20 Outpatient R CHARLENE [facility] [id number] Univers 10:40:00 10:40:00 YADY ity of [facility] 2019-12-19 2019-12-19 Outpatient R [facility] [id number] Univers 11:40:00 11:40:00 ity of [facility] 2019-12-19 2019-12-19 Urgent Pob1, Acute Care Clinic [facility] 1. 2.840.114 [id number] Univers 11:12:08 11:32:08 Care Alireza Changa [facility] 350.1.13.10 ity of [place] 4.2.7.2.686 Hoang as Professio [phone] [address] Office [facility] 2019-10-30 2019-10-30 Outpatient [facility] [id number] [address] [place] [address] 00:00:00 00:00:00 BRITTANY [address] 2019-10-11 2019-10-11 Outpatient LAZARO [facility] [id number] 6[address] [place] 00:00:00 00:00:00 BRITTANY [address] 2019-07-17 2019-07-17 Telephone Pob1, Acute [facility] 1.2.840.114 [id number] Univers 00:00:00 00:00:00 [facility] 350.1.13.10 ity of [place] 4.2.7.2.686 Hoang as Professio [phone] [place] dical nal [address] Office [facility] 2019-07-04 2019-07-04 Plate Embosser 2, Adc Lab [facility] 1.2.840.114 [id number] Univers 09:22:48 09:37:48 Visit Fan Peraza 350.1.13.10 ity of [place] 4[place]2.7.2.686 [place] Professio [phone] [place] dical nal 353 [facility] 2019-07-04 2019-07-04 Outpatient R ZEKE [facility] [id number] Univers 09:15:00 09:15:00 RICHARDS ity [facility] 2019-07-04 2019-07-[address] [facility] 1.2.840.114 [id number] Univers 08:50:40 09:05:40 Visit [facility] 350.1.13.10 it y of [place] 4.2.7.2.686 Hoang as Professio [phone] [place] dical nal [address] [place] Office [facility] 2019-07-04 2019-07-04 Orders Doctor LUANA 1.2.840.114 [id number] Univers 00:00:00 00:00:00 Only Unassigned, MIR 350.1.13.10 ity of [place] [facility] 4.2.7.2.686 Hoang as [phone] [address] 2019-06-13 2019-06-[address] [facility] 1.2.840.114 [id number] Univers 00:00:00 00:00:00 [facility] 350.1.13.10 it y of [place] 4.2.7.2.686 Hoang as Professio [phone] [address] Office [facility] One 2019-06-13 2019-06-[address] [facility] 1.2.840.114 [id number] Univers 00:00:00 00:00:00 Shelley [facility] 350.1.13.10 i ty of [place] 4.2.7.2.686 Hoang as Professio [phone] [address] Office [facility] One 2019-05-28 2019-05-28 Telephone Zeke [facility] 1.2.104.013 [id number] Univers 00:00:00 00:00:00 [facility] 350.1.13.10 it y of [place] 4.2.7.2.686 Hoang as Professio [phone] [address] Office [facility] One 2019-05-21 2019-05-21 Orders Doctor LUANA 1.2.840.114 [id number] Univers 00:00:00 00:00:00 Only Unassigned, MIR 350.1.13.10 ity of [place] [facility] 4.2.7.2.686 Hoang as [phone] [address] 2018-12-13 2018-12-13 [facility] 1.2.840.114 [id number] Univers 07:56:43 08:41:53 Visit Shelley [facility] 350.1.13.10 i ty of [place] 4.2.7.2.686 Hoang as Professio [phone] [address] Office [facility] 2018-12-13 2018-12-[address] [facility] 1.2.821.603 [id number] Univers 00:00:00 00:00:00 [facility] 350.1.13.10 i ty of [place] 4.2.7.2.686 Hoang as Professio [phone] [address] 2018-12-06 2018-12-[address] [facility] 1.2.840.114 [id number] Univers 00:00:00 00:00:00 [facility] 350.1.13.10 i ty of [place] 4.2.7.2.686 Hoang as Professio [phone] [place]s dical nal [address] One 2018-11-15 2018-11-15 William Peraza INMATT 1.2.840.114 [id number] Univers 00:00:00 00:00:00 Fan [facility] 350.1.13.10 it y narcisa Jackson 4.2.7.2.686 Hoang as Shaun [phone] [facility] nal [address] [place] [address] One Results Test Description Test Time Test Comments Results Result Comments Source Human Immunodeficiency Virus 1 (HIV-1), Quantitative P CR ([facility]) 2022-01-08 17:41:00 Test Item Value Reference Range Interpretation Comme nts HIV-1 RNA, quantitative <40 See_Comment Not Detected [Automated PCR (test code = message] e system which ) generated this result transmitted ref erence range: <40 copi es/mL. The reference range was not used to interpr et this result as hollis l/abnormal. log10 HIV-1 RNA (test <1.60 See_Comment Not De tected This test was code = 94483-3) performed us ing the [employer] Real Time (TM)H IV-1 Test Kit ([employer] [Automate d message] The system [employer] generated this result tra nsmitted reference range : <1.60 log cps/mL. The ref erence range was not u sed to interpret this result as normal/abnormal . RAC (test code = RAC) Performing Organization Information: Site ID: AMD Name: [employer] Address: [address] [place] [address] [place] [address] Director: Rigoberto Schultz M.D.,PhD [facility] [id number] 22:22:00 Test Item Value Reference Range Interpretation Comments Glucose (test code = 136 mg/dL 65-99 H Fastin g 3995-7) reference interval For someone without known diabetes, a glucosevalue >1 25 mg/dL indicates that they may havediabetes an d this should be confirmed with afollow-up test . BUN (test code = 16 mg/dL 7-25 8504-0) Creatinine (test 0.62 mg/dL 0.70-1.30 L code = 2160-0) eGFR (test code = See_Comment The eGFR i s based 8257) on the CKD-EPI 2020 equation. To calculate the n ew eGFR from a previous Creatinine or Cystatin Cresul t, go to [email or web address]://[email or web address] ne y.org/shaun pacheco/kdoqi/gfr%5F ca lculator [Automated message] The system which generated this result transmitted reference range : > OR = 60 mL/min/1.73m2. The reference range was not used to interpr et this result as normal/abnormal . BUN/creatinine ratio See_Comment H [Autom ated (test code = 3097-3) message ] The system which generated this result transmitted reference range : 6 - 22 (calc). The reference range was not used to interpr et this result as normal/abnormal . Sodium (test code = 137 mmol/L 461-915 0346-2) Potassium (test code 4.8 mmol/L 3.5-5.3 = 2823-3) Chloride (test code 100 mmol/L 98-110 = 5-0) CO2 (test code = 26 mmol/L 20-32 2027-) Calcium (test code = 9.3 mg/dL 8.6-10.3 00225-5) Protein (test code = 7.6 g/dL 6.1-8.1 2885-2) Albumin, S (test 4.4 g/dL 3.6-5.1 code = 1751-7) Globulin, total See_Comment [Automated (test code = message] The 95863-9) system which generated this result transmitted reference range : 1.9 - 3.7 g/dL (calc). The reference range was not used to interpret this result as normal/abnormal . Albumin/globulin See_Comment [Automated ratio (test code = message] The 1759-0) system which generated this result transmitted reference range : 1.0 - 2.5 (calc ). The reference range was not used to interpr et this result as normal/abnormal . Total bilirubin 0.5 mg/dL 0.2-1.2 (test code = 1975-2) Alkaline phosphatase 122 U/L 35-144 (test code = 6768-6) AST (test code = 85 U/L 10-35 H 1920-8) ALT (test code = 205 U/L 9-46 H 1742-6) RAC (test code = Performing RAC) Organization Information: Site ID: [id number] Name: [facility] Address: [address] [place] [id number] Director: Marcos Cantrell Lab Interpretation Abnormal (test code = 76902-9) [id number]00 Test Item Value Reference Range Interpretation Comments Cholesterol, total 179 mg/dL See_Comment [Automat ed (test code = 2093-3) message ] The system which generated this result transmitted reference range : <=200. The reference range was not used to interpret this result as normal/abnormal . HDL cholesterol 48 mg/dL See_Comment [Automated (test code = 2085-9) message ] The system which generated this result transmitted reference range : > OR = 40. The reference range was not used to interpret this result as normal/abnormal . Triglycerides (test 123 mg/dL See_Comment [Automa jeaneth code = 2571-8) message] The system which generated this result transmitted reference range : <=150. The reference range was not used to interpret this result as normal/abnormal . LDL cholesterol mg/dL (calc) H Reference ra nge: calculated (test <100 Desira ble code = 87861-3) range <100 m g/dL for primary prevention; <70 mg/dL for patients with C HD or diabetic patients with > or = 2 CHD risk factors. LDL-C is now calculated using the Js-Jesus calculation, which is a validated novel method providin g better accuracy than the Friedewald equation in the estimation of LDL-C. Js S S et al. DELROY. 2013;310(19): 5213-6047 (http://educati on .QuestDiagnosti JoggleBug .com/faq/EKU088 ) Cholesterol/HDL See_Comment [Automated ratio (test code = message] The 9830-1) system which generated this result transmitted reference range : <5.0 (calc). Th e reference range was not used to interpret this result as normal/abnormal . Non-HDL cholesterol See_Comment H For abigail ents with (test code = diabetes plus 1 32938-8) major ASCVD ris k factor, treatin g to a non-HDL-C goal of <100 mg/dL (LDL-C of <70 mg/dL) is considered a therapeutic option. [Automated message] The system which generated this result transmitted reference range : <130 mg/dL (calc). The reference range was not used to interpret this result as normal/abnormal . RAC (test code = Performing RAC) Organization Information: Site ID: RGA [facility]: [facility] Address: [address] [place] [phone] Director: Marcos Cantrell Lab Interpretation Abnormal (test code = 43972-5) [facility] with platelet and [id number] 22:22:00 Test Item Value Reference Range Interpretation Comments WBC (test code = See_Comment H [Automated 5690-2) message] The system which generated this result transmitted reference range : 3.8 - 10.8 Thousand/uL. Th e reference range was not used to interpret this result as normal/abnormal . RBC (test code = See_Comment [Automated 829-8) message] The system which generated this result transmitted reference range : 4.20 - 5.80 Million/uL. The reference range was not used to interpret this result as normal/abnormal . HGB (test code = 16.7 g/dL 13.2-17.1 718-7) HCT (test code = 48.9 % 38.5-50.0 4544-3) MCV (test code = 96.6 fL 80.0-100.0 787-2) MCH (test code = 33.0 pg 27.0-33.0 785-6) MCHC (test code = 34.2 g/dL 32.0-36.0 786-4) RDW (test code = 13.1 % 11.0-15.0 788-0) Platelet count (test See_Comment [Autom ated code = 777-3) message] The system which generated this result transmitted reference range : 140 - 400 Thousand/uL. Th e reference range was not used to interpret this result as normal/abnormal . MPV (test code = 9.7 fL 7.5-12.5 776-5) Neutrophils, See_Comment H [Automated absolute (test code message] The = 751-8) system which generated this result transmitted reference range : 1,500 - 7,800 cells/uL. The reference range was not used to interpret this result as normal/abnormal . Lymphocytes, See_Comment [Automated absolute (test code message] The = 731-0) system which generated this result transmitted reference range : 850 - 3,900 cells/uL. The reference range was not used to interpret this result as normal/abnormal . Monocytes, absolute See_Comment [Automa jeaneth (test code = 742-7) message] The system which generated this result transmitted reference range : 200 - 950 cells/uL. The reference range was not used to interpret this result as normal/abnormal . Eosinophils, See_Comment [Automated absolute (test code message] The = 711-2) system which generated this result transmitted reference range : 15 - 500 cells/uL. The reference range was not used to interpret this result as normal/abnormal . Basophils, absolute See_Comment [Automa jeaneth (test code = 704-7) message] The system which generated this result transmitted reference range : 0 - 200 cells/u L. The reference range was not used to interpr et this result as normal/abnormal . Neutrophils (test 70.6 % code = 770-8) Lymphocytes (test 21.8 % code = 736-9) Monocytes (test code 6.7 % = 5905-5) Eosinophils (test 0.7 % code = 713-8) Basophils + RC (test 0.2 % code = 706-2) RAC (test code = Performing RAC) Organization Information: Site ID: RGA [facility]: [facility] Address: [address] [place] [phone] Director: Marcos Cantrell Lab Interpretation Abnormal (test code = 99812-3) [facility] cell Lymphocyte Subset Panel [id number] 22:22:00 Test Item Value Reference Range Interpretation Comments CD4% (test code = 22 % 30-61 L 8123-2) CD4 absolute count See_Comment [Automat ed (test code = message] The 62777-1) system which generated this result transmitted reference range : 490 - 1,740 cells/uL. The reference range was not used to interpret this result as normal/abnormal . CD8% (test code = 46 % 12-42 H 8101-8) CD8 absolute count See_Comment H [Automat ed (test code = message] The 99566-8) system which generated this result transmitted reference range : 180 - 1,170 cells/uL. The reference range was not used to interpret this result as normal/abnormal . CD4/CD8 ratio (test 0.86-5.00 L code = 19648-5) Lymphocytes, See_Comment [Automated absolute (test code message] The = 731-0) system which generated this result transmitted reference range : 850 - 3,900 cells/uL. The reference range was not used to interpret this result as normal/abnormal . RAC (test code = Performing RAC) Organization Information: Site ID: IG [facility]: [facility] Address: [address] [place] [phone] Director: Dr. Marcos Cantrell Lab Interpretation Abnormal (test code = 24285-5) [facility] [id number] 14:45:00 Test Item Value Reference Range Interpretation Comments AMAURY (test code = Please see results in Care AMAURY) Everywhere. 46675--QWLY PATH LEVEL 4 2019-05-29 08:45:00 ? RUN DATE: 05/29/19 [facility]*Live* PAGE 1 RUN TIME: 0846 Specimen Inquiry PATIENT: TRAVIS PICHARDO ACCT: [id number] LOC: OR U: [id number]/SX: 53/M ROOM: RE05/28/[address]: Jeaneth Johnston MD : 1965 BED: DIS:STATUS: DEP [facility] TLOC: SPEC : [id number] RECD: 05/28/19 STATUS: FLORECITA REKirit NUM: [id number]: 05/28/[address]: Jeaneth Johnston MD ENTERED: 05/28/19 SP TYPE: INPATIENT OTHR DR: ORDERED: 82928/3 CODES: COLON, NOS PROCEDURES: 19833 (05/28/19) TISSUES:A. COLON, NOS - HEPATIC FLEXURE POLYPB. COLON, NOS - RIGHT POLYP AT FLEXUREC. COLON, NOS - LEFT COLON POLYPCLINICAL HISTORY Pre-op Diagnosis: Screening colonoscopy. Post-op Diagnosis: Internal hemorrhoids, diverticulosis, polyp x3.DIAGNOSIS Hepatic flexure polyp, biopsy:- Tubular adenoma Right colon polyp at flexure, biopsy:- Consistent with an early adenomatous polyp Left colon polyp, biopsy:- Tubular adenoma CPT 59092 [id number] DESCRIPTION The case is received in three parts each labeled with the patient's name Travis Pichardo and accession #[id number], accompanied by a requisition slip labeled with the patient's name and the same accession number. Specimen A is received in formalin, labeled hepatic flexure polyp and consists of one valverde-pink tissuefragment measuring 0.5 cm submitted entirely in cassette A. Specimen B is received in formalin, labeled right colon polyp at flexure and consists of two valverde-pink tissue fragments measuring 0.3 cm each submitted entirely in cassette B. Specimen C is received in formalin, labeled left colon polyp and consists of two valverde-pink tissue fragments measuring 0.4 cm each submitted entirely in cassette C. (ASW) RUN DATE: 05/29/19 [facility]*Live* PAGE 2 RUN TIME: 845 Specimen Inquiry SPEC: [id number] PATIENT: TRAVIS PICHARDO [id number] (Continued) MICROSCOPIC DESCRIPTION Sections of Specimen A, hepatic flexure polyp biopsy show a fragment of benign polypoid colonic mucosa. There are some glands that show nuclear pseudostratification and loss of mucin. There is no evidence of malignancy. Sections of Specimen B, right colon polyp at flexure show fragments of benign polypoid colonic mucosa. There are a few glands that show nuclear pseudostratification and loss of mucin. There is no evidence of malignancy. Sections of Specimen C, left colon polyp biopsy show fragments of benign polypoid colonic mucosa. There are some glands that show nuclear pseudostratification and loss of mucin. There is no evidence of malignancy. Signed Bernarda Kimball MD 05/29/19 0897 Lab Interpretation Normal (test code = 10315-0) [facility]
[2022-04-10] MEDS ORDERED: METOCLOPRAMIDE 10 MG/2mL INJ ONE (09:36)
[2022-04-10] MEDS ORDERED: dexAMETHasone 10 MG/ML VIAL ONE (09:36)
[2022-04-10] MEDS ORDERED: DIPHENHYDRAMINE 50 MG/ML VIAL ONE (09:36)
[2022-04-10] MEDS ORDERED: NA CHLORIDE 0.9% 500 ML ONE (09:37)
[2022-04-10] MEDS ORDERED: KETOROLAC 30 MG/ML INJ ONE (09:37)
[2022-04-10] MEDS ORDERED: NA CHLORIDE 0.9% 100 ML IV ONE (09:38)
[2022-04-10 10:03] LABS: Absolute Lymphocytes (CBC) 4.2 K/uL (0.7-4.9); Hematocrit 47.8 % (39.6-49.0); Lymphocytes % 48.9 % (15.3-44.8); MCV 98.4 fL (80-100); RBC Red Blood Cell Count 4.86 M/uL (4.33-5.43)
[2022-04-10 10:49] LABS: Potassium 3.9 mmol/L (3.5-5.1)
[2022-04-10 10:55] LABS: Blood Morphology Comment NOT SEEN (NOT SEEN); Platelet Estimate ADEQ
--- NOTE | 2022-04-10 11:23 | RAD REPORT ---
EXAM DESCRIPTION: CT - Head Brain Wo Cont - 04/10/2022 11:08 am CLINICAL HISTORY: headache, blurred vision Headache, drowsiness COMPARISON: Head angio dated 04/10/2022 TECHNIQUE: All CT scans are performed using dose optimization technique as appropriate and may inclu de automated exposure control or mA/KV adjustment according to patient size. FINDINGS: No intracranial hemorrhage, hydrocephalus or extra-axial fluid collection.No areas of brai n edema or evidence of midline shift. Small amount of fluid is seen left maxillary antrum. The calvarium is intact. IMPRESSION: No acute intracranial abnormality.
--- NOTE | 2022-04-10 11:24 | RAD REPORT ---
EXAM DESCRIPTION: CT - Head angio - 04/10/2022 11:09 am CLINICAL HISTORY: headache, visual changes Headache, drowsiness COMPARISON: No comparisons TECHNIQUE: CT angiography of the head was performed with MIPs. All CT scans are performed using dose optimization technique as appropriate and may include automated exposure control or mA/KV adjustment according to patient size. FINDINGS: No evidence of aneurysm is detected. No flow-limiting stenosis or vascular malformation id entified. Antegrade flow is seen in the vertebral arteries. The vertebral arteries are codominant. The visualized dural venous sinuses are patent. IMPRESSION: No significant flow abnormality is detected.
--- NOTE | 2022-04-10 11:30 | RAD REPORT ---
EXAM DESCRIPTION: CT - Neck Angio - 04/10/2022 11:10 am CLINICAL HISTORY: headache, right sided visual change Headache, drowsiness COMPARISON: No comparisons TECHNIQUE: CT angiography of the neck vessels was performed with MIPs. All CT scans are performed using dose optimization technique as appropriate and may include automated exposure control or mA/KV adjustment according to patient size. FINDINGS: A left aortic arch is identified with bovine configuration of the great vessels. No significant flow abnormality is seen of the common carotid bilaterally. There is mild to moderate mixed plaquing involving both carotid bulbs. Stenosis of both carotid bulbs estimated less than 50% based on NASCET criteria. Normal flow is seen within both vertebral arteries. Vertebrobasilar system is diminutive in size. IMPRESSION: Mild to moderate mixed plaquing involving both carotid bulbs without a significant carot id stenosis seen.
--- NOTE | 2022-04-10 12:51 | ER ---
Nurse's Notes [facility] Name: Travis Pichardo Age: 56 yrs Sex: Male : 1965 Arrival Date: 04/10/2022 Time: 09:23 Bed 6 Private MD: Fan Alanis S Diagnosis: Headache Presentation: 04/10 09:32 Chief complaint: Patient states: Pressure in the back of the head that occurs when he ph wakes up in the morning x approx 1 month. Pain/pressure radiating to R side of head and R eye, blurred and double vision in R eye x approx 1 week. Coronavirus screen: Vaccine status: Patient reports being unvaccinated. Ebola Screen: No symptoms or risks identified at this time. Initial Sepsis Screen: Does the patient meet any 2 criteria? No. Patient's initial sepsis screen is negative. Does the patient have a suspected source of infection? No. Patient's initial sepsis screen is negative. Risk Assessment: Do you want to hurt yourself or someone else? Patient reports no desire to harm self or others. Onset of symptoms was April 10, 2022. 09:32 Method Of Arrival: Ambulatory 09:32 Acuity: LIYAH 3 ph Triage Assessment: 09:35 Headache History: Denies prior headaches. General: Appears in no apparent distress. ph comfortable, well groomed, Behavior is calm, cooperative, appropriate for age. Pain: Complains of pain in occipital area Pain radiates to right eye, right samaritan and right occipital area Quality of pain is described as pressure, Pain began approx 1 month ago. Neuro: Level of Consciousness is awake, alert, obeys commands, Oriented to person, place, time, situation. 09:35 Pain: Pain currently is 8 out of 10 on a pain scale. Also complains of sleeplessness. kb3 Historical: - Allergies: 09:35 No Known Allergies; ph - PMHx: 09:35 Diabetes - NIDDM; HIV; Hyperlipidemia; Hypertension; ph - Immunization history:: Adult Immunizations unknown. - Social history:: Smoking status: Patient denies any tobacco usage or history of. Screenin:37 [facility] ED Fall Risk Assessment (Adult) History of falling in the last 3 months, kb3 including since admission No falls in past 3 months (0 pts) Confusion or Disorientation No (0 pts) Intoxicated or Sedated No (0 pts) Impaired Gait Yes (1 pt) Mobility Assist Device Used No (0 pt) Altered Elimination No (0 pt) Score/Fall Risk Level 0 - 2 = Low Risk Oriented to surroundings, Maintained a safe environment, Educated pt \T\ family on fall prevention, incl call for assistance when getting out of bed, Assessed \T\ reinforced patient's understanding of fall precautions, Hourly rounding (assess needs \T\ fall precautionary measures) done. Abuse screen: Denies threats or abuse. Denies injuries from another. Nutritional screening: No deficits noted. Tuberculosis screening: No symptoms or risk factors identified. Assessment: 09:37 General: Appears in no apparent distress. Behavior is calm, cooperative. Pain: kb3 Complains of pain in right temporal area, right side of forehead, right occipital area and right base of the skull. Neuro: No deficits noted. 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 Full function Gait is steady, Speech is normal, Facial symmetry appears normal, Pupils are PERRLA, Pupil Size: 4 Intact Reports blurred vision in right eye headache in right occipital area. Vital Signs: 09:32 BP 147 / 81; Pulse 82; Resp 18; Temp 97.8; Pulse Ox 98% on R/A; Weight 86.18 kg; Height ph 5 ft. 10 in. (177.80 cm); 10:00 BP 122 / 73; Pulse 71; Resp 18; Pulse Ox 96% ; kb3 13:00 BP 110 / 64; Pulse 68; Resp 18; Pulse Ox 98% ; kb3 09:32 Body Mass Index 27.26 (86.18 kg, 177.80 cm) ph Vitals: 09:37 Cardiac Rhythm Assessment Regular Sinus rhythm. kb3 ED Course: 09:23 Patient arrived in ED. as 09:23 Fan Alanis MD is Private Physician. as 09:28 Keri Mallory, PABLO is Primary Nurse. kb3 09:29 Harinder Mendoza PA is PHCP. [facility] 09:29 Manjula Pulido MD is Attending Physician. jm 09:35 Triage completed. ph 09:36 Arm band placed on Patient placed in an exam room, on a stretcher, on environmental monitoring technician, ph on pulse oximetry. 09:37 Patient has correct armband on for positive identification. Bed in low position. Call kb3 light in reach. Side rails up X 1. Warm blanket given. 09:37 No provider procedures requiring assistance completed. Inserted saline lock: 20 gauge kb3 in right forearm, using aseptic technique. Blood collected. 10:[address] kb3 11:10 CT Head Brain wo Cont In Process Unspecified. EDMS 11:11 CT Head Angio In Process Unspecified. EDMS 11:12 CT Neck Angio In Process Unspecified. EDMS 11:54 CRP Sent. kb3 11:54 ESR Sent. kb3 12:47 Vinnie Muñiz MD is Referral Physician. kanam 13:31 IV discontinued, intact, bleeding controlled, No redness/swelling at site. kb3 Administered Medications: 09:50 Drug: Decadron - Dexamethasone 10 mg Route: IVP; Site: right antecubital; db 10:30 Follow up: Response: No adverse reaction kb3 09:50 Drug: Ketorolac 30 mg Route: IVP; Site: right antecubital; db 10:45 Follow up: Response: No adverse reaction; Pain is decreased kb3 09:51 Drug: NS 0.9% 500 ml Route: IV; Rate: bolus; Site: right antecubital; db 10:45 Follow up: Response: No adverse reaction; IV Status: Completed infusion; IV Intake: kb3 500ml 09:51 Drug: Reglan (metoCLOPramide) 20 mg Route: IVP; Site: right antecubital; db 10:45 Follow up: Response: No adverse reaction kb3 09:51 Drug: diphenhydrAMINE 12.5 mg Route: IVP; Site: right antecubital; db 10:45 Follow up: Response: No adverse reaction kb3 Medication: 09:37 VIS not applicable for this client. kb3 Intake: 10:45 IV: 500ml; Total: 500ml. kb3 Outcome: 12:50 Discharge ordered by . jmm 13:30 Discharged to home ambulatory. kb3 13:31 Condition: stable kb3 13:31 Discharge instructions given to patient, Instructed on discharge instructions, follow up and referral plans. medication usage, Demonstrated understanding of instructions, follow-up care, medications, Prescriptions given X 1. 13:34 Patient left the ED. kb3 Signatures: Dispatcher [employer] EDMS Harinder Mendoza PA PA jmm Martinez, Amelia as Hall, Patricia RN RN Keri Mallory RN RN kb3 Sully Villalobos RN RN db
--- NOTE | 2022-04-10 12:51 | EDPHYS ---
Physician Documentation [facility] Name: Travis Pichardo Age: 56 yrs Sex: Male : 1965 Arrival Date: 04/10/2022 Time: 09:23 Bed 6 Private MD: Fan Alanis S ED Physician Manjula Pulido HPI: 04/10 09:38 This 56 yrs old Male presents to ER via Ambulatory with complaints of jmm Headache, Blurred Vision - r eye. 09:38 The patient complains of pain to the left frontal area, left temporal area and left jmm hoahaoism. Onset: The symptoms/episode began/occurred gradually, 1 month(s) ago. This is a 56 year old male with a history of dm, HIV, hlp, htn that presents to the ED with complaints of right sided headache beginning a month ago and worsening over the past week. Patient states he will wake up with blurred vision in the right eye that will resolve when he closes the left eye. Denies weakness, vomiting, photosensitivity, neck stiffness. . Historical: - Allergies: 09:35 No Known Allergies; ph - PMHx: 09:35 Diabetes - NIDDM; HIV; Hyperlipidemia; Hypertension; ph - Immunization history:: Adult Immunizations unknown. - Social history:: Smoking status: Patient denies any tobacco usage or history of. ROS: 09:38 Constitutional: Negative for fever, chills, and weight loss, Cardiovascular: Negative jmm for chest pain, palpitations, and edema, Respiratory: Negative for shortness of breath, cough, wheezing, and pleuritic chest pain. 09:38 Neuro: Positive for headache, visual changes. 09:38 All other systems are negative. Exam: 09:38 Constitutional: This is a well developed, well nourished patient who is awake, alert, jmm and in no acute distress. Head/Face: atraumatic. Eyes: EOMI, no conjunctival erythema appreciated ENT: Moist Mucus Membranes Neck: Trachea midline, Supple Chest/axilla: Normal chest wall appearance and motion. Cardiovascular: Regular rate and rhythm. No edema appreciated Respiratory: Normal respirations, no respiratory distress appreciated Abdomen/GI: Non distended Back: Normal ROM Skin: General appearance color normal MS/ Extremity: Moves all extremities, no obvious deformities appreciated, no edema noted to the lower extremities Neuro: Awake and alert Psych: Behavior is normal, Mood is normal, Patient is cooperative and pleasant Vital Signs: 09:32 BP 147 / 81; Pulse 82; Resp 18; Temp 97.8; Pulse Ox 98% on R/A; Weight 86.18 kg; Height ph 5 ft. 10 in. (177.80 cm); 10:00 BP 122 / 73; Pulse 71; Resp 18; Pulse Ox 96% ; kb3 13:00 BP 110 / 64; Pulse 68; Resp 18; Pulse Ox 98% ; kb3 09:32 Body Mass Index 27.26 (86.18 kg, 177.80 cm) ph MDM: 09:32 Patient medically screened. [facility] 12:46 Data reviewed: vital signs, nurses notes. Counseling: I had a detailed discussion with cris the patient and/or guardian regarding: the historical points, exam findings, and any diagnostic results supporting the discharge/admit diagnosis, lab results, radiology results, the need for outpatient follow up, to return to the emergency department if symptoms worsen or persist or if there are any questions or concerns that arise at home. ED course: Headache is partially relieved in the ED. I did discuss the patient with Dr. Muñiz who recommended additional studies of ESR and CRP due to concerns for temporal arteritis. Upon reevaluation patient does not have any temporal pain. Pain is mainly to the right occipital region. Patient is advised to follow-up with neurology for further evaluation otherwise given strict return precautions. Patient understood agrees plan of care.. 04/10 09:41 Order name: CBC with Diff; Complete Time: 10:56 [facility] 04/10 09:41 Order name: BMP; Complete Time: 10:56 [facility] 04/10 09:31 Order name: CT Head Brain wo Cont; Complete Time: 11:25 [facility] 04/10 10:55 Order name: Manual Differential; Complete Time: 10:56 [facility] 04/10 11:31 Order name: ESR; Complete Time: 12:45 [facility] 04/10 11:31 Order name: CRP; Complete Time: 12:26 [facility] 04/10 09:30 Order name: Saline Lock; Complete Time: 10:23 [facility] 04/10 09:42 Order name: CT Head Angio; Complete Time: 11:25 [facility] 04/10 09:42 Order name: CT Neck Angio; Complete Time: 11:31 [facility] Administered Medications: 09:50 Drug: Decadron - Dexamethasone 10 mg Route: IVP; Site: right antecubital; db 10:30 Follow up: Response: No adverse reaction kb3 09:50 Drug: Ketorolac 30 mg Route: IVP; Site: right antecubital; db 10:45 Follow up: Response: No adverse reaction; Pain is decreased kb3 09:51 Drug: NS 0.9% 500 ml Route: IV; Rate: bolus; Site: right antecubital; db 10:45 Follow up: Response: No adverse reaction; IV Status: Completed infusion; IV Intake: kb3 500ml 09:51 Drug: Reglan (metoCLOPramide) 20 mg Route: IVP; Site: right antecubital; db 10:45 Follow up: Response: No adverse reaction kb3 09:51 Drug: diphenhydrAMINE 12.5 mg Route: IVP; Site: right antecubital; db 10:45 Follow up: Response: No adverse reaction kb3 Disposition: 19:01 STAFF ATTESTATION STATEMENT: I was immediately available onsite in the emergency sd2 department for consultation in the care of this patient. I did not see or examine this patient. Manjula Pulido MD. Disposition Summary: 04/10/22 12:50 Discharge Ordered Location: Home [facility] Condition: Stable [facility] Diagnosis - Headache [facility] Followup: [facility] - With: Vinnie Muñiz MD - When: 2 - 3 days - Reason: Recheck today's complaints, Continuance of care, Re-evaluation by your physician Discharge Instructions: - Discharge Summary Sheet [facility] - Migraine Headache [facility] Forms: - Medication Reconciliation Form [facility] - Thank You Letter [facility] - Antibiotic Education [facility] - Prescription Opioid Use [facility] Prescriptions: - topiramate 25 mg Oral tablet - take 1 tablet by ORAL route once daily at bedtime; 30 tablet; Refills: 0, [facility] Product Selection Permitted Signatures: Dispatcher [employer] Harinder Chappell PA PA Daina Gamble ph D, RN RNunlop, Stephanie, MD MD sd2 Sully Villalobos RN RN Keri Paez RN kb3
[2022-04-10 13:41] VITALS: TEMP 97.8
[2022-04-10 13:43] VITALS: BP 110/64; O2SAT 98
== END 2022-04-10 13:34 | disposition home or self-care (01) ==
LOC: ER 09:20
DX: R51.9 Headache, unspecified (principal); I10 Essential (primary) hypertension; E11.9 Type 2 diabetes mellitus without complications; Z21 Asymptomatic human immunodeficiency virus [HIV] infection status
CPT/HCPCS: 85025; 80048; 36415; 85652; 86140; 70450; 70496; 70498; Q9967; J2765; J1200; J1100; J7040; 96361; 96374; 96375; 99284